=== PATIENT | female | born 1975 | race Caucasian/White ===

== ENCOUNTER 2021-09-21 00:21 | Day surgery (SDC) | payer OTHER, SELFPAY ==
[2021-09-06 14:39] VITALS: BMI 38.0
[2021-09-21 10:07] VITALS: BP 133/101; PULSE 128; RESP 18; TEMP 36.1; O2SAT 98; BMI 37.5
--- NOTE | 2021-09-21 10:11 | PM.HPGS ---
History of Present Illness History of Present Illness Consent: Risks, benefits, and alternatives have been discussed and questions answered. Patient agrees to proceed with procedure. 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 Review of Systems Constitutional: Constitutional: Denies headache(s) and Denies weakness Eyes: Eyes: Denies blurry vision ENT: Reports Normal hearing present, Denies headache(s) and Denies neck pain Cardiovascular: Cardiovascular: Denies chest pain and Denies dyspnea Respiratory: Respiratory: Denies dyspnea Gastrointestinal: Gastrointestinal: Reports no additional gastrointestinal complaints Genitourinary: Genitourinary: Denies dysuria Musculoskeletal: Musculoskeletal: Denies neck pain Integumentary/Breasts: Skin/Breast: Denies dry skin Neurologic: Reports Normal hearing present, Denies headache(s) and Denies weakness Psychiatric: Psychiatric: Denies anxiety Endocrine: Endocrine: Denies change in body appearance Hematologic/Lymphatic: Hematologic/Lymphatic: Denies easy bleeding Allergic/Immunologic: Allergic/Immunologic: Denies urticaria PMFSH Past Medical History Medical History (Updated 09/21/21 @ 10:12 by Floyd Rodríguez MD) Colon cancer screening GERD (gastroesophageal reflux disease) Family History Family History (Updated 02/23/16 @ 23:21 by DOCTOR UNKNOWN) Mother Patient's mother is in good health Family history of alcoholism Father Patient's father is in good health Sibling Patient's sister is in good health Grandparent Diabetes mellitus Social History Social History Smoking status: Never smoker Second hand tobacco smoke exposure: No Alcohol intake: current Drinks per week: 3 Substance use: never Substance use type: does not use Living arrangements: with family Spiritual care concerns: No Meds Home Medications and Allergies Home Medications Medication Instructions Recorded Confirmed Type famotidine 40 mg PO DAILY 09/06/21 09/06/21 History hydrochlorothiazide 25 mg PO DAILY 09/06/21 09/06/21 History levothyroxine [Synthroid] 112 mcg PO DAILY 09/06/21 09/06/21 History meloxicam 7.5 mg PO DAILY 09/06/21 09/06/21 History metoprolol succinate 100 mg PO DAILY 09/06/21 09/21/21 History norethindrone acetate 5 mg PO DAILY 09/06/21 09/06/21 History valsartan 320 mg PO DAILY 09/06/21 09/21/21 History venlafaxine 150 mg PO DAILY 09/06/21 09/06/21 History Allergies Allergy/AdvReac Type Severity Reaction Status Date / Time No Known Allergies Allergy Verified 09/21/21 10:05 Vital Signs Vital Signs - 24 hr 09/21/21 10:07 Temperature 97 F L Pulse Rate 128 H Respiratory Rate 18 Blood Pressure 133/101 H Pulse Oximetry 98 Exam Const: General: comfortable and no acute distress HENMT: General nose exam: Normal nares present Eyes: General: appearance normal, both eyes and all related structures Neck: Neck: no JVD Resp: Auscultation: clear to auscultation bilaterally Cardio: Rate: regular rate Rhythm: regular rhythm GI: Inspection: non-distended GI Palp: Yes Soft to palpation Skin: General skin exam: normal color Neuro: General: gait normal Speech: normal speech Extrem: General: normal to inspection Psych: Mental Status: mental status grossly normal Assessment and Plan Assessment and plan (1) GERD (gastroesophageal reflux disease): Code(s): K21.9 - Gastro-esophageal reflux disease without esophagitis Status: Acute Assessment and Plan: egd- will get bx of small bowel as well (2) Colon cancer screening: Code(s): Z12.11 - Encounter for screening for malignant neoplasm of colon Status: Acute Assessment and Plan: colonoscopy
--- NOTE | 2021-09-21 10:14 | WPDANESEPPF ---
Anes - Initial Pre Proc Eval Procedure: Operation Date: 09/21/21 10:45 Proposed Procedures p Esophagogastroduodenoscopy & Screening Colonoscopy - Floyd Rodríguez MD Date/Time: 09/21/21 10:14 Surgeon: Floyd Rodríguez MD Pre Op Diagnosis: GERD, Neoplasm screening Patient Data Age: 46 Gender: F Height: 1.73 m Weight: 112 kg Last Vital Signs Temp 36.1 C L 09/21/21 10:07 Pulse 128 H 09/21/21 10:07 Resp 18 09/21/21 10:07 BP 133/101 H 09/21/21 10:07 Pulse Ox 98 09/21/21 10:07 Allergies Allergy/AdvReac Type Severity Reaction Status Date / Time No Known Allergies Allergy Verified 09/21/21 10:05 Home Medications Medication Instructions Recorded Confirmed Type famotidine 40 mg PO DAILY 09/06/21 09/06/21 History hydrochlorothiazide 25 mg PO DAILY 09/06/21 09/06/21 History levothyroxine [Synthroid] 112 mcg PO DAILY 09/06/21 09/06/21 History meloxicam 7.5 mg PO DAILY 09/06/21 09/06/21 History metoprolol succinate 100 mg PO DAILY 09/06/21 09/21/21 History norethindrone acetate 5 mg PO DAILY 09/06/21 09/06/21 History valsartan 320 mg PO DAILY 09/06/21 09/21/21 History venlafaxine 150 mg PO DAILY 09/06/21 09/06/21 History Patient hx anesthesia problems: none Family hx anesthesia problems: none Results Review: All pre-operative results and documents have been reviewed as part of the pre-operative evaluation. FORMERLY [facility], [facility]1983 Past Medical History Medical History Anxiety GERD (gastroesophageal reflux disease) Hypertension Hypothyroid CHAVA (obstructive sleep apnea) Family History Family History Mother Patient's mother is in good health Family history of alcoholism Father Patient's father is in good health Sibling Patient's sister is in good health Grandparent Diabetes mellitus Social History Social History Smoking status: Never smoker Second hand tobacco smoke exposure: No Alcohol intake: current Drinks per week: 3 Substance use: never Substance use type: does not use Living arrangements: with family Spiritual care concerns: No Anes - Eval Final PreProcedure Day of Procedure 09/21/21 10:14 Patient weight: obese Heart: regular rate and rhythm Lungs: clear to auscultation Airway: Mallampati scale class II Neurological: alert and oriented Last oral intake: >/= 8 hours ASA classification: III Emergent: no Anesthetic plan: proceed Anesthesia type and monitoring: general GIVS and standard monitoring Results Review: All pre-operative results and documents have been reviewed as part of the pre-operative evaluation. Informed Consent: The patient's anesthetic plan and its attendant risks and benefits were discussed with the patient/family/POA. Questions were solicited and answers provided to the satisfaction of the patient/family/POA.
[2021-09-21] MEDS: LACTATED RINGERS 1,000 ML 150 ML IV CONT (10:15)
[2021-09-21 10:46] VITALS: BP 125/73; PULSE 103; RESP 20; O2SAT 96
[2021-09-21 10:56] VITALS: BP 138/96; PULSE 93; RESP 20; O2SAT 97
[2021-09-21 11:06] VITALS: BP 142/90; PULSE 95; RESP 19; O2SAT 98
== END 2021-09-21 11:18 | disposition home or self-care (01) ==
PROVIDERS: PCP Physician Assistant; Visit Provider Internal Medicine Gastroenterology
PROC: 0DJ08ZZ Inspection of Upper Intestinal Tract, Via Natural or Artificial Opening Endoscopic (ICD-10-PCS; CPT 43235; principal; 2021-09-21 10:45)
DX: Z12.11 Encounter for screening for malignant neoplasm of colon (principal); D12.2 Benign neoplasm of ascending colon; K29.70 Gastritis, unspecified, without bleeding; K21.9 Gastro-esophageal reflux disease without esophagitis; K90.0 Celiac disease; I10 Essential (primary) hypertension; E03.9 Hypothyroidism, unspecified; G47.33 Obstructive sleep apnea (adult) (pediatric); F41.9 Anxiety disorder, unspecified; E66.9 Obesity, unspecified; Z68.37 Body mass index [BMI] 37.0-37.9, adult
CPT/HCPCS: 45380; 43239; 88305; J2001; J2704; J7120

== ENCOUNTER 2021-11-12 05:31 | Emergency (ER) | payer OTHER, SELFPAY ==
[2021-11-12] VITALS (14 sets, daily range): BP systolic 153–191; BP diastolic 83–117; PULSE 73–92; RESP 15–22; TEMP 36.4; O2SAT 96–100
--- NOTE | ~2021-11-12 | CT_ITS ---
EXAMINATION: CT brain wo con EXAM DATE: 11/12/2021 06:08 INDICATION: Headache Since Yesterday. TECHNIQUE: Spiral CT of the head was performed without contrast. Axial, coronal and sagittal images were reviewed. The dose-length product (DLP) for this examination was 605.33 mGy-cm. The exposure w as tailored according to patient size, and iterative reconstruction (ASIR) was used as additional dos e reduction technique. There is no prior study for comparison. FINDINGS: There is no acute intraparenchymal hemorrhage. No evidence of intraparenchymal brain mass lesion. No evidence of acute infarction. There is no mass effect or midline shift. The ventricles are normal in size. There are no extra-axial collections. There are no acute calvarial fractures. T he orbits are unremarkable. Soft tissue is unremarkable. The visualized sinuses and mastoid air noe ls are well aerated. IMPRESSION: 1. Unremarkable head CT examination. Reviewed, dictated and finalized at location A.
--- NOTE | 2021-11-12 05:58 | PC.NURSE ---
Patient taken to CT a this time via stretcher.
--- NOTE | 2021-11-12 06:00 | ED.GENADULT ---
HPI - General Adult General Chief complaint: Headache Stated complaint: severe headache Time Seen by Provider: 11/12/21 05:39 Source: patient and RN notes reviewed Mode of arrival: ambulatory Limitations: no limitations History of Present Illness HPI narrative: 46-year-old female history of migraines presenting to the emergency department for evaluation of a migraine that has been ongoing since the morning of the . Patient states when she woke up on the she had a frontal headache. Patient states that the headache does worsen with pressure to her head. Patient denies any associated light sensitivity. Patient does report associated nasal congestion and sinus pressure. Patient did have follow-up with a prompt care yesterday and was treated with a migraine cocktail including IM Toradol and IM Zofran. Patient reports this did help her and until he woke up this morning and had a recurrence of the headache. Denies any falls or injuries. Patient denies any fevers. Patient denies any associated neck pain. Patient denies any associated numbness or weakness. Related Data Home Medications Medication Instructions Recorded Confirmed famotidine 40 mg PO DAILY 09/06/21 09/06/21 hydrochlorothiazide 25 mg PO DAILY 09/06/21 09/06/21 levothyroxine [Synthroid] 112 mcg PO DAILY 09/06/21 09/06/21 metoprolol succinate 100 mg PO DAILY 09/06/21 09/21/21 norethindrone acetate 5 mg PO DAILY 09/06/21 09/06/21 valsartan 320 mg PO DAILY 09/06/21 09/21/21 venlafaxine 150 mg PO DAILY 09/06/21 09/06/21 ondansetron 11/12/21 prednisone 11/12/21 Allergies Allergy/AdvReac Type Severity Reaction Status Date / Time No Known Allergies Allergy Verified 11/12/21 05:36 Review of Systems Review of Systems: CONSTITUTIONAL: Denies fever, chills, or sweats. EYES: Denies visual changes, redness, or discharge. ENT: see hpi. CARDIOVASCULAR: Denies chest pain, palpitations, or edema. RESPIRATORY: Denies cough or dyspnea. GASTROINTESTINAL: Denies abdominal pain, nausea, vomiting, or diarrhea. GENITOURINARY: Denies dysuria or hematuria. SKIN: Denies rash or itching. MUSCULOSKELETAL: Denies back pain, joint pain, or myalgia. NEUROLOGIC: see hpi PMFSH Past Medical History Medical History Anxiety GERD (gastroesophageal reflux disease) Hypertension Hypothyroid CHAVA (obstructive sleep apnea) Family History Family History Mother Patient's mother is in good health Family history of alcoholism Father Patient's father is in good health Sibling Patient's sister is in good health Grandparent Diabetes mellitus Social History Social History Smoking status: Never smoker Second hand tobacco smoke exposure: No Alcohol intake: current Drinks per week: 3 Substance use: never Substance use type: does not use Spiritual care concerns: No Exam Narrative: APPEARANCE: Well appearing, no pain, no distress, well-nourished. HEAD: normocephalic, atraumatic. Reports headache is improved with palpation and pressure on the frontal and maxillary sinuses EYES: PERRLA/EOMI, conjunctivae clear. NOSE: Normal no drainage NECK: Supple. No adenopathy, no masses. RESPIRATORY: Airway patent, respirations nonlabored. Clear to auscultation bilaterally, no rales, rhonchi, wheezing. CARDIOVASCULAR: Regular rate and rhythm without murmurs rubs or gallops. ABDOMINAL: Soft, nontender, nondistended, normal bowel sounds MUSCULOSKELETAL: Moves all extremities. Strength/ROM intact, No edema, No calf tenderness. NEURO: Alert. Cranial nerves II through XII intact. Good gait. Good coordination. Grossly intact SKIN: Warm, dry. Normal Color Course Reevaluation(s) Reevaluation #1: On reexamination patient states her headache is almost completely resolved. Patient blood pressure was mildly elevated she
[2021-11-12] MEDS: SODIUM CHLORIDE 0.9% IV 1,000 ML 999 ML IV CONT (06:06)
[2021-11-12] MEDS: PROCHLORPERAZINE EDISYLATE 10 MG/2 ML VIAL IV PUSH (06:06)
[2021-11-12] MEDS: hydrALAZINE HCL 20 MG/ML VIAL 10 MG IV PUSH (06:07)
[2021-11-12] MEDS: diphenhydrAMINE HCl INJ 50 MG/ML VIAL 25 MG IV PUSH (06:07)
[2021-11-12] MEDS: METOPROLOL SUCCINATE EXT REL 100 MG TABCR PO (06:40)
[2021-11-12] MEDS: KETOROLAC 15 MG/ML VIAL (*BKC) IV PUSH (06:46)
== END 2021-11-12 07:53 | disposition home or self-care (01) ==
PROVIDERS: Emergency Provider Emergency Medicine; PCP Physician Assistant
DX: R51.9 Headache, unspecified (principal); I10 Essential (primary) hypertension; E03.9 Hypothyroidism, unspecified; G47.33 Obstructive sleep apnea (adult) (pediatric); K21.9 Gastro-esophageal reflux disease without esophagitis; F41.9 Anxiety disorder, unspecified
CPT/HCPCS: 70450; 96361; 96374; 96375; 99284; A9270; J0360; J0780; J1200; J1885; J7030

== ENCOUNTER → 2022-08-20 09:16 | Outpatient (CLI) | payer OTHER, SELFPAY ==
--- NOTE | ~2022-08-20 | US_ITS ---
EXAMINATION: US retroperitoneal duplex ltd DATE: 08/20/2022 09:49 INDICATION: Essential primary hypertension TECHNIQUE: Multiple grayscale, color Doppler, and pulsed Doppler images of the kidneys and renal isabel anne were obtained. COMPARISON: None. FINDINGS: The aorta peak systolic velocity is 105 cm/s. The right renal artery peak systolic velocity is 96 cm/ s in the proximal segment, 95 cm/s in the mid segment, and 128 cm/s in the distal segment. The left r enal artery peak systolic velocity is 81 cm/s in the proximal segment, 95 cm/s in the mid segment, an d 100 cm/s in the distal segment. IMPRESSION: 1. No Doppler evidence of renal artery stenosis. Reviewed, dictated and finalized at location L. AGE AGENT SUPERVISOR
== END ==
PROVIDERS: PCP Physician Assistant; Visit Provider Physician Assistant
DX: I10 Essential (primary) hypertension (principal)
CPT/HCPCS: 93976

== ENCOUNTER 2023-08-27 23:04 | Emergency (ER) | payer OTHER, SELFPAY ==
--- NOTE | ~2023-08-27 | CT_ITS ---
CT of the Abdomen and Pelvis: Indication: Postop infection, status post liposuction Technique: 2.5 mm axial scans were obtained through the abdomen and pelvis following intravenous adm inistration of 100 cc of Omnipaque 350. Dose reduction technique was used on this scan by utilizing a utomated exposure control and iterative reconstruction technique. The dose-length product (DLP) was 1 403.25 mGy-cm. Findings: Scans through the lung bases are unremarkable. The liver, spleen, pancreas, gallbladder, adrenals and kidneys are within normal limits. No evidence of aortic aneurysm. No lymphadenopathy. No bowel obstruction or bowel wall thickening. There is no evidence to suggest acute appendicitis. Th ere is extensive subcutaneous soft tissue edema changes with areas of fluid in the subcutaneous soft tissues, especially the left midabdomen. Images through the pelvis were performed. Urinary bladder unremarkable. No pelvic mass evident. No as cites. Impression: Diffuse subcutaneous soft tissue edema with areas of fluid, especially the left midabdomen. These fin dings could reflect sequelae of recent surgery/liposuction. Developing seromas or even abscesses are not excluded. No other significant findings. Reviewed, dictated and finalized at location . PHONE COLLECTOR Impression: Diffuse subcutaneous soft tissue edema with areas of fluid, especially the left midabdomen. These findings could reflect sequelae of recent surgery/liposuctio n. Developing seromas or even abscesses are not excluded. No other significant findings.
[2023-08-27 23:17] VITALS: BP 164/80; PULSE 87; RESP 16; TEMP 36.8; O2SAT 100
[2023-08-28] VITALS (11 sets, daily range): BP systolic 149–193; BP diastolic 78–98; PULSE 78–89; RESP 16–23; O2SAT 96–100
[2023-08-28 00:53] LABS: Basophils Percent Auto 0.5 % (0.2-1.2); Eosinophils Absolute Auto 0.3 K/mm3 (0-0.3); Hematocrit 34.2 % (37.0-47.0); Hemoglobin 11.1 g/dL (12.0-15.0); Immature Granulocyte Absolute 0.02 K/mm3 (0.00-0.031); Immature Granulocyte Percent A 0.2 % (0-0.5); Lymphocytes Absolute Auto 1.61 K/mm3 (0.9-3.2); Lymphocytes Percent Auto 19.5 % (18.3-44.2); Mean Corpuscular HGB Conc 32.5 g/dl (32-36); Mean Corpuscular Hemoglobin 32.5 pg (26-34); Mean Platelet Volume 10.9 fl (7.4-10.4); Monocytes Absolute Auto 0.8 K/mm3 (0.1-0.6); Monocytes Percent Auto 9.1 % (2.6-8.5); Neutrophils Absolute Auto 5.6 K/mm3 (1.3-6.7); Neutrophils Percent Auto 67.7 % (45.5-73.1); Platelet Count Result 259 k/mm3 (150-375); Red Blood Count 3.42 M/mm3 (4.2-5.4); Red Cell Distribution Width 14.8 % (11.5-14.5); White Blood Count 8.2 K/mm3 (4.5-10.0)
[2023-08-28 01:10] LABS: Lactic Acid Reflex 1.3 mmol/L (0.7-2.0)
[2023-08-28 01:14] LABS: Alanine Aminotransferase 23 U/L (6-35); Albumin Level 3.8 g/dL (3.5-5.1); Alkaline Phosphatase 120 U/L (38-126); Anion Gap 8 mmol/L (8-16); Aspartate Amino Transferase 22 U/L (14-36); Bilirubin,Total 0.4 mg/dL (0.2-1.3); Blood Urea Nitrogen 16 mg/dL (7-17); Calcium 9.3 mg/dL (8.4-10.2); Carbon Dioxide 27 mmol/L (22-30); Chloride 104 mmol/L (98-107); Estimated CRCL calculation 93 ml/min; Estimated Glomerular Filt Rate > 60; Glucose 155 mg/dL (65-110); Potassium 3.4 mmol/L (3.4-5.0); Sodium 139 mmol/L (137-145)
[2023-08-28 01:38] LABS: Appearance Urine Clear (Clear); Bacteria Urine None Seen /hpf; Bilirubin Urine Negative (Negative); Blood Urine Negative (Negative); Color Urine Yellow (Yellow); Glucose Urine UA 1+ mg/dL (Negative); Ketones Urine Negative (Negative); Leukocyte Esterase Ur 1+ LEU/UL (Negative); Need Manual Microscopic Reviewed; Nitrate Urine Negative (Negative); Non Pathogenic Casts 0-2; Protein Urine Negative (Negative); RBC Urine 0-2 /hpf (0-2); Specific Grav Ur 1.007 (1.001-1.035); Squamous Epithelial Cell Urine None seen /hpf (Few); Urobilinogen Urine 0.2 mg/dL (<2.0); WBC Urine 0-5 /hpf; pH Urine 5.5 (5.0-9.0)
[2023-08-28 01:39] LABS: Add Urine Microscopic? YES
[2023-08-28] MEDS: ceFAZolin 1 GM/NS 50 ML 1 GM/50 ML BAG IVPB (01:55)
--- NOTE | 2023-08-28 02:33 | PC.NURSE ---
PT ABLE TO GET AHOLD OF SURGEON, DR. FELTON EMERGENCY NUMBER, . EDP LEODAN MADE AWARE AND GIVEN PHONE NUMBER.
--- NOTE | 2023-08-28 02:40 | PC.NURSE ---
THIS RN CONTACTED PHARMACY REGARDING VANC ORDER. PHARMACY DOSING NOW AND TO BE SENDING RX UP BY [facility].
--- NOTE | 2023-08-28 02:42 | ED.WOUNDLAC ---
HPI - Wound/Laceration General Chief Complaint: Wound/Laceration Stated Complaint: post-lipo infection Time Seen by Provider: 08/28/23 00:16 Source: patient Mode of arrival: ambulatory Limitations: no limitations History of Present Illness HPI narrative: This is a 48 year old female that presents to the ER for wound infection. Reports she had a tummy tuck on the 11 of August. Reports over the last couple of days she has had worsening redness of her incision site. Reports some abnormal drainage. She was started on Augmentin by her surgeon yesterday without any improvement. Denies fevers. Related Data Home Medications Medication Instructions Recorded Confirmed famotidine 40 mg tablet 40 mg PO DAILY 09/06/21 09/06/21 hydrochlorothiazide 25 mg tablet 25 mg PO DAILY 09/06/21 09/06/21 levothyroxine 112 mcg tablet 112 mcg PO DAILY 09/06/21 09/06/21 (Synthroid) metoprolol succinate 50 mg 100 mg PO DAILY 09/06/21 09/21/21 tablet,extended release 24 hr norethindrone acetate 5 mg tablet 5 mg PO DAILY 09/06/21 09/06/21 valsartan 320 mg tablet 320 mg PO DAILY 09/06/21 09/21/21 venlafaxine 150 mg 150 mg PO DAILY 09/06/21 09/06/21 capsule,extended release 24 hr ondansetron 8 mg disintegrating 11/12/21 tablet prednisone 20 mg tablet 11/12/21 Allergies Allergy/AdvReac Type Severity Reaction Status Date / Time No Known Allergies Allergy Verified 08/28/23 01:05 Review of Systems Review of Systems: CONSTITUTIONAL: Denies fever GASTROINTESTINAL: Denies abdominal pain, nausea, vomiting All systems reviewed & are unremarkable except as noted in HPI and below PMFSH Past Medical History Medical History Anxiety GERD (gastroesophageal reflux disease) Hypertension Hypothyroid CHAVA (obstructive sleep apnea) Family History Family History Mother Patient's mother is in good health Family history of alcoholism Father Patient's father is in good health Sibling Patient's sister is in good health Grandparent Diabetes mellitus Social History Social History Smoking status: Never smoker Second hand tobacco smoke exposure: No Alcohol intake: current Drinks per week: 3 Substance use: never Substance use type: does not use Living arrangements: with family Spiritual care concerns: No Exam Narrative: GENERAL: Well-appearing, well-nourished, and in no acute distress. HEAD: Normocephalic, atraumatic. EYES: EOMI. CHEST: Clear to auscultation. No respiratory distress. No wheezes rales or rhonchi HEART: Regular rate and rhythm. No murmur heard. Normal peripheral pulses. ABDOMEN: Soft, nontender, nondistended, normal active bowel sounds. Large horizontal incision with surrounding edema and erythema, some wound dehiscence of the left side of the incision. Abnormal drainage from the umbilicus EXTREMITIES: Normal range of motion. No edema. SKIN: Warm, dry, no rash. NEURO: No focal deficits. Alert and oriented x3. PSYCH: Normal mood and affect Course Course Emergency Course: Patient updated on her workup and agrees with plan of care Consultations Consultation #1: Spoke with Dr. Phipps about patient and workup. Would like patient to follow up in her office today Date: 08/28/23 Vital Signs Vital signs: Vital Signs Temperature 98.2 F 08/27/23 23:17 Pulse Rate 87 08/27/23 23:17 Respiratory Rate 16 08/27/23 23:17 Blood Pressure 164/80 H 08/27/23 23:17 Pulse Oximetry 100 08/27/23 23:17 Oxygen Delivery Room Air 08/27/23 23:17 Temperature 98.2 F 08/27/23 23:17 Pulse Rate 80 08/28/23 00:12 Respiratory Rate 17 08/28/23 00:12 Blood Pressure 157/84 H 08/28/23 01:16 Pulse Oximetry 97 08/28/23 03:00 Oxygen Delivery Room Air 08/27/23 23:17 MDM - Wound/Laceration MDM Narrative Medic
[2023-08-28] MEDS: VANCOMYCIN 1,250 MG/NS 250 ML 1,250 MG/250 ML BAG 166.67 MG IVPB (03:04)
--- NOTE | 2023-08-28 04:43 | PC.NURSE ---
Pt c/o itching on lower neck and shoulders that started last 5 mins of 1/[address] Mar made aware and assessing pt at this time.
[2023-08-28] MEDS: diphenhydrAMINE HCl INJ 50 MG/ML VIAL IV PUSH (04:58)
--- NOTE | 2023-08-28 05:00 | PC.NURSE ---
EDP Dr. Mar ordered 2/2 bag of vanc to be held and to admin ordered benadryl. 2/2 bag of vanc can be resumed at 1/2 rate after rash is gone.
[2023-08-28] MEDS: VANCOMYCIN 1,250 MG/NS 250 ML 1,250 MG/250 ML BAG 84 MG IVPB (05:33)
--- NOTE | 2023-08-28 05:33 | PC.NURSE ---
Rash no longer visible on pt and pt has no c/o itching. Vanc bag 2/2 started at 84ml/hr. Pt to call out with any changes in condition. This RN will continue to monitor pt through duration of infusion.
== END 2023-08-28 07:53 | disposition home or self-care (01) ==
PROVIDERS: Emergency Provider Physician Assistant; PCP Physician Assistant
DX: T81.41XA Infection following a procedure, superficial incisional surgical site, initial encounter (principal); I10 Essential (primary) hypertension; E03.9 Hypothyroidism, unspecified; K21.9 Gastro-esophageal reflux disease without esophagitis; G47.33 Obstructive sleep apnea (adult) (pediatric)
CPT/HCPCS: 36415; 74177; 80053; 81001; 81025; 83605; 85025; 86140; 87040; 87070; 87077; 87147; 87181; 87186; 87205; 96365; 96366; 96367; 96375; 99284; J0690; J1200; J3370; Q9967

== ENCOUNTER 2023-12-24 07:35 | Outpatient (CLI) | payer OTHER, SELFPAY ==
--- NOTE | ~2023-12-24 | US_ITS ---
EXAMINATION: US retroperitoneal duplex ltd DATE: 12/24/2023 08:17 INDICATION: Hypertension. TECHNIQUE: Multiple grayscale, color Doppler, and pulsed Doppler images of the kidneys and renal isabel anne were obtained. COMPARISON: CT abdomen and pelvis 08/28/2023 FINDINGS: The aorta peak systolic velocity is 64 cm/s. The right renal artery peak systolic velocity is 110 cm/ s in the proximal segment, 95 cm/s in the mid segment, and 183 cm/s in the distal segment. The left r enal artery peak systolic velocity is 80 cm/s in the proximal segment, 168 cm/s in the mid segment, a nd 191 cm/s in the distal segment. IMPRESSION: 1. No Doppler evidence of renal artery stenosis. The prior CT similarly shows no significant renal a rtery stenosis. Reviewed, dictated and finalized at location A. IMPRESSION: 1. No Doppler evidence of renal artery stenosis. The prior CT similarly shows no significant renal artery stenosis.
== END 2023-12-24 07:36 | disposition home or self-care (01) ==
PROVIDERS: PCP Physician Assistant; Visit Provider Physician Assistant
DX: I10 Essential (primary) hypertension (principal)
CPT/HCPCS: 93976

== ENCOUNTER 2024-02-10 14:24 | Emergency (ER) | payer OTHER, SELFPAY ==
[2024-02-10] VITALS (17 sets, daily range): BP systolic 165–188; BP diastolic 83–116; PULSE 83–85; RESP 16; TEMP 36.6; O2SAT 98–100
--- NOTE | 2024-02-10 14:48 | ECG_ITS ---
Test Date: 2024-02-10 15:07:35 Measurements Intervals [place] Rate: 77 P: 22 SD: 185 QRS: 10 QRSD: 91 T: 11 QT: 365 QTc: 414 Interpretive Statements SINUS RHYTHM VOLTAGE CRITERIA FOR LVH CONSIDER INFERIOR INFARCT, AGE INDETERMINATE ABNORMAL ECG No previous ECG available for comparison Electronically Signed On 02-10-2024 15:28:14 CDT by Jefry Gambino D.O.
[2024-02-10] MEDS: hydrALAZINE HCL 20 MG/ML VIAL 10 MG IV PUSH ×2 (15:27→16:23)
[2024-02-10 15:36] LABS: Basophils Absolute Auto 0.1 K/mm3 (0.0-0.1); Basophils Percent Auto 0.8 % (0.2-1.2); Eosinophils Absolute Auto 0.1 K/mm3 (0-0.3); Eosinophils Percent Auto 1.8 % (0-4.4); Hemoglobin 13.6 g/dL (12.0-15.0); Immature Granulocyte Absolute 0.02 K/mm3 (0.00-0.031); Immature Granulocyte Percent A 0.3 % (0-0.5); Lymphocytes Absolute Auto 1.91 K/mm3 (0.9-3.2); Lymphocytes Percent Auto 28.9 % (18.3-44.2); Mean Corpuscular Hemoglobin 31.6 pg (26-34); Mean Corpuscular Volume 92.8 fl (80-100); Mean Platelet Volume 11.1 fl (7.4-10.4); Monocytes Absolute Auto 0.8 K/mm3 (0.1-0.6); Monocytes Percent Auto 12.1 % (2.6-8.5); Neutrophils Absolute Auto 3.7 K/mm3 (1.3-6.7); Neutrophils Percent Auto 56.1 % (45.5-73.1); Platelet Count Result 180 k/mm3 (150-375); Red Blood Count 4.31 M/mm3 (4.2-5.4); Red Cell Distribution Width 14.2 % (11.5-14.5); White Blood Count 6.6 K/mm3 (4.5-10.0)
[2024-02-10 15:51] LABS: Alanine Aminotransferase 29 U/L (6-35); Albumin Level 4.4 g/dL (3.5-5.1); Alkaline Phosphatase 115 U/L (38-126); Anion Gap 11 mmol/L (4-12); Aspartate Amino Transferase 27 U/L (14-36); Bilirubin,Total 0.6 mg/dL (0.2-1.3); Blood Urea Nitrogen 21 mg/dL (7-17); Calcium 9.4 mg/dL (8.4-10.2); Carbon Dioxide 29 mmol/L (22-30); Chloride 98 mmol/L (98-107); Estimated CRCL calculation 91 ml/min; Estimated Glomerular Filt Rate > 60; Glucose 123 mg/dL (65-110); Potassium 3.7 mmol/L (3.4-5.0); Sodium 138 mmol/L (137-145)
--- NOTE | 2024-02-10 16:45 | ED.GENADULT ---
HPI - General Adult General Chief complaint: Recheck/Abnormal Lab/Rx Stated complaint: HTN Time Seen by Provider: 02/10/24 14:37 Source: patient Limitations: no limitations History of Present Illness HPI narrative: 48-year-old with a history of hypertension, hypothyroidism, anxiety here with the complaints of elevated blood pressure since this morning. She denies any blurred vision, no chest pain or shortness of breath. Onset (ago): day(s) (1) Radiation: non-radiation Severity: moderate Relieving factors: none Exacerbating factors: none Associated symptoms: denies other symptoms Treatments prior to arrival: none Related Data Home Medications Medication Instructions Recorded Confirmed famotidine 40 mg tablet 40 mg PO DAILY 09/06/21 09/06/21 hydrochlorothiazide 25 mg tablet 25 mg PO DAILY 09/06/21 09/06/21 levothyroxine 112 mcg tablet 112 mcg PO DAILY 09/06/21 09/06/21 (Synthroid) metoprolol succinate 50 mg 100 mg PO DAILY 09/06/21 09/21/21 tablet,extended release 24 hr norethindrone acetate 5 mg tablet 5 mg PO DAILY 09/06/21 09/06/21 valsartan 320 mg tablet 320 mg PO DAILY 09/06/21 09/21/21 venlafaxine 150 mg 150 mg PO DAILY 09/06/21 09/06/21 capsule,extended release 24 hr ondansetron 8 mg disintegrating 11/12/21 tablet prednisone 20 mg tablet 11/12/21 Allergies Allergy/AdvReac Type Severity Reaction Status Date / Time No Known Allergies Allergy Verified 02/10/24 14:25 Review of Systems Review of Systems: All systems reviewed & are unremarkable except as noted in HPI and below Constitutional: Constitutional: Reports no additional constitutional complaints Eyes: Eyes: Reports no additional eye complaints ENT: Reports system reviewed and no additional complaints, except as documented Cardiovascular: Cardiovascular: Reports no additional cardiovascular complaints Respiratory: Respiratory: Reports no additional respiratory complaints Gastrointestinal: Gastrointestinal: Reports no additional gastrointestinal complaints Musculoskeletal: Musculoskeletal: Reports no additional musculoskeletal complaints Integumentary/Breasts: Skin/Breast: Reports system reviewed and no additional complaints, except as docu Neurologic: Reports system reviewed and no additional complaints, except as documented [facility] Past Medical History Medical History Anxiety GERD (gastroesophageal reflux disease) Hypertension Hypothyroid CHAVA (obstructive sleep apnea) Family History Family History Mother Patient's mother is in good health Family history of alcoholism Father Patient's father is in good health Sibling Patient's sister is in good health Grandparent Diabetes mellitus Social History Social History Smoking status: Never smoker Second hand tobacco smoke exposure: No Alcohol intake: current Drinks per week: 3 Substance use: never Substance use type: does not use Living arrangements: with family Spiritual care concerns: No Exam Narrative: GENERAL: Well-appearing, well-nourished, and in no acute distress. HEAD: Normocephalic, atraumatic. EYES: PERRLA and EOMI. ENT: Nares clear, no rhinorrhea or epistaxis. Mucous membranes moist. NECK: Supple. CHEST: Clear to auscultation. No respiratory distress. HEART: Regular rate and rhythm. No murmur heard. Normal peripheral pulses. ABDOMEN: Soft, nontender, nondistended, normal active bowel sounds. EXTREMITIES: Normal range of motion. No edema. SKIN: Warm, dry, no rash. NEURO: No focal deficits. Alert and oriented x3. PSYCH: Normal mood and affect. Course Course Emergency Course: Patient feeling better informed about the lab work. Recommended her to follow with her primary doctor as well as a secretary bookkeeper. Her blood pressure has gradually come down. It is 175/95. Vital Si
== END 2024-02-10 17:04 | disposition home or self-care (01) ==
PROVIDERS: Emergency Provider Family Medicine; PCP Physician Assistant
DX: I10 Essential (primary) hypertension (principal); F41.9 Anxiety disorder, unspecified; K21.9 Gastro-esophageal reflux disease without esophagitis; E03.9 Hypothyroidism, unspecified; G47.30 Sleep apnea, unspecified
CPT/HCPCS: 36415; 80053; 85025; 93005; 96374; 96376; 99284; J0360

== ENCOUNTER 2024-12-20 14:49 | Emergency (ER) | payer OTHER, SELFPAY ==
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
--- NOTE | 2024-12-20 14:52 | ECG_ITS ---
Test Date: 2024-12-20 14:54:35 Measurements Intervals [place] Rate: 79 P: 43 NV: 188 QRS: 23 QRSD: 88 T: 49 QT: 368 QTc: 423 Interpretive Statements SINUS RHYTHM Compared to ECG 02/10/2024 15:07:35 T-wave abnormality now present Left ventricular hypertrophy no longer present Myocardial infarct finding no longer present Electronically Signed On 12-20-2024 15:07:34 CDT by Ronnie Mendez M.D.
[2024-12-20 14:53] VITALS: BP 155/94; PULSE 81; RESP 18; TEMP 37.1; O2SAT 99
[2024-12-20 16:46] VITALS: BP 144/78; PULSE 89; PULSE 91; RESP 18; RESP 20; O2SAT 100
[2024-12-20 16:55] LABS: Basophils Absolute Auto 0.1 K/mm3 (0.0-0.1); Basophils Percent Auto 0.6 % (0.2-1.2); Eosinophils Absolute Auto 0.2 K/mm3 (0-0.3); Eosinophils Percent Auto 1.5 % (0-4.4); Hematocrit 38.9 % (37.0-47.0); Hemoglobin 12.7 g/dL (12.0-15.0); Immature Granulocyte Absolute 0.09 K/mm3 (0.00-0.031); Immature Granulocyte Percent A 0.7 % (0-0.5); Lymphocytes Absolute Auto 1.64 K/mm3 (0.9-3.2); Mean Corpuscular HGB Conc 32.6 g/dl (32-36); Mean Corpuscular Hemoglobin 31.8 pg (26-34); Mean Corpuscular Volume 97.3 fl (80-100); Mean Platelet Volume 10.3 fl (7.4-10.4); Monocytes Absolute Auto 0.8 K/mm3 (0.1-0.6); Monocytes Percent Auto 6.6 % (2.6-8.5); Neutrophils Absolute Auto 9.8 K/mm3 (1.3-6.7); Neutrophils Percent Auto 77.6 % (45.5-73.1); Platelet Count Result 278 k/mm3 (150-375); Red Cell Distribution Width 14.6 % (11.5-14.5); White Blood Count 12.6 K/mm3 (4.5-10.0)
[2024-12-20 17:01] VITALS: BP 126/85; PULSE 87; RESP 23; O2SAT 99
[2024-12-20 17:03] LABS: Alanine Aminotransferase 27 U/L (6-35); Albumin Level 4.1 g/dL (3.5-5.1); Alkaline Phosphatase 100 U/L (38-126); Anion Gap 15 mmol/L (4-12); Aspartate Amino Transferase 36 U/L (14-36); Bilirubin,Total 0.3 mg/dL (0.2-1.3); Blood Urea Nitrogen 14 mg/dL (7-17); Calcium 9.2 mg/dL (8.4-10.2); Carbon Dioxide 21 mmol/L (22-30); Chloride 105 mmol/L (98-107); Estimated CRCL calculation 91 ml/min; Estimated Glomerular Filt Rate > 60; Glucose 135 mg/dL (65-110); Potassium 3.5 mmol/L (3.4-5.0); Sodium 141 mmol/L (137-145)
[2024-12-20 17:18] LABS: Prothrombin Time 13.6 Seconds (11.1-14.7)
[2024-12-20 17:19] LABS: Partial Thromboplastin Time 22.7 Seconds (22.3-36.8)
--- OUTSIDE RECORDS SUMMARY | 2024-12-20 18:28 | XMS_ITS | Data Portability ---
Author Organization [place] [facility] [place], Main Office Address [address] [place] [address] Assessment No assessment recorded. Plan of Treatment Reminders Order Date Submit Date Provider Last Modified By Organization Details Last Modified Time Details Appointments None recorded. Lab None recorded. Referral None recorded. Procedures None recorded. Surgeries None recorded. Imaging XR, ankle + foot 2022 023 VIJAY Not available 3 08:46:49 MAMMO, diagnostic, digital, bilateral 2022 023 [email or web address] 4 Not available 3 10:37:06 US, breast, unilateral 2022 023 [email or web address] 4 Not available 3 10:36:55 Medication Orders None recorded. Patient TargetsNo targets recorded. Patient InstructionsNo instructions recorded. Reason for Referral None Reported. Results Created Date Observation Date Name Description Value Unit Range Abnormal Flag Note LastModifiedBy Organization Detail LastModifiedTime 07/23/20 22 07/29/2022 donavon justin am No observ ation record ed. [id number] [facility] [address], [place], [address], 09/25/2022 18:03:05 07/23/20 22 07/17/2022 elect samuel tellogr am No observ ation record ed. [id number] [facility] [address], [place], [address], 09/25/2022 18:03:05 09/18/19 23 08/20/2022 US, duple x, renal arter y No observ ation record ed. [id number] [facility] [address], [place], [address], 09/25/2022 18:03:05 10/10/19 23 10/01/2022 stres s echoc ardio gram No observ ation record ed. [email or web address] [facility] [address], [place], [address], 10/09/2022 17:26:53 02/12/20 23 12/21/2022 XR, ankle No observ ation record ed. [email or web address] [facility] [address] [place], [address], 02/12/2023 10:53:16 02/14/20 23 02/12/2023 XR, ankle + foot No observ ation record ed. [email or web address] [facility] [address] [place], [address], 02/21/2023 14:30:41 Result Notes None recorded. Problems Name Problem SNOMED Code Status Onset Date Resolution Date Notes Provider Name and Address Organization Details Recorded Time Benign hypertensi on 87672254 Active Not Available [facility] 3 18:01:56 Benign essential hypertensi on 1670390 Active 2021 Not Available [facility] 3 18:01:56 Blood glucose outside reference range 009609755 Active Not Available [facility] 3 18:01:56 Thyroid nodule 353078963 Active Not Available [facility] 3 18:01:56 Hypothyroi dism due to Ronnie' s thyroiditi s 682230196 Active Not Available [facility] 3 18:01:56 Wasp sting 353640503 Active Not Available [facility] 3 18:01:56 Eruption 865540227 Active Not Available [facility] 3 18:01:56 Vitamin D deficiency 99312404 Active Not Available [facility] 3 18:01:56 Celiac disease 781672871 Active Not Available [facility] 3 18:01:56 Dizziness 670774818 Active 2022 Not Available [facility] 3 18:01:56 Dysphagia 48620380 Active Not Available [facility] 3 18:01:56 Hypothyroi dism 17201076 Active Not Available [facility] 3 18:01:56 Intentiona l weight loss 566008955 Active 2021 Not Available [facility] 3 18:01:56 Well controlled type 2 diabetes mellitus 398612649 Active 2021 Not Available [facility] 3 18:01:57 Resistant hypertensi ve disorder 3011745071544 09 Active 2021 Not Available [facility] 3 18:01:57 Hyperlipid emia 78217351 Active 2021 Not Available [facility] 3 18:01:57 Otitis media 38602471 Active Not Available [facility] 3 18:01:57 Eustachian tube disorder 87772401 Active Not Available [facility] 3 18:01:57 Snoring 60523314 Active Not Available [facility] 3 18:01:57 Fatigue 81021258 Active Not Available [facility] 3 18:01:57 Weight gain 1955241 Active Not Available [facility] 3 18:01:57 Mass of left breast 7016050895442 9103 Active 2022 ALON Nicholas [address], [place], [address] , [facility] 3 16:37:11 Sprain of right ankle 2108155998067 9105 Active 2022 ALON Nicholas [address], [place], [address] , [employer] [facility] 3 14:29:30 Notes:Some problems listed i n Document: #[id number] could not be added to this patient's chart. Please review this document and add these problems to the patient's chart manually as needed. Problem Notes None recorded. Procedures Surgical History Date Name Laterality Status Provider Name and Address Organization Details Recorded Time Ablation completed Not Available [facility] 18:01:18 Imaging Results None recorded. Procedure Notes None recorded. Medical Equipment None Reported. Allergies No known drug allergies Medications Name Sig Start Date Stop Date Status Note LastModified by Organization Details LastModified Time sleepio mis active Not Available Not Available Not Available Augmentin 875 mg-125 mg tablet Take 1 tablet every 12 hours by oral route. 09/20 completed Not Available Not Available Not Available venlafaxin e ER 37.5 mg capsule,ex tended release 24 hr TAKE ONE CAPSULE BY MOUTH EVERY DAY 04/21 completed Not Available Not Available Not Available clonidine HCl 0.1 mg tablet Take 1 tablet twice a day by oral route. active change to AM dose only Not Available Not Available Not Available venlafaxin e ER 75 mg capsule,ex tended release 24 hr Take 1 capsule every day by oral route. 03/29 completed Not Available Not Available Not Available atorvastat in 10 mg tablet Take 1 tablet every day by oral route in the evening. active Not Available Not Available No t Available metoprolol succinate ER 50 mg tablet,ext ended release 24 hr TAKE 1 TABLET BY MOUTH DAILY 01/31 completed Not Available Not Available Not Available ranitidine 300 mg tablet TAKE 1 TABLET BY MOUTH EVERY MORNING 02/16 completed Not Available Not Available Not Available metoprolol succinate ER 50 mg tablet,ext ended release Take 1 tablet every day by oral route. 01/08 completed Not Available Not Available Not Available famotidine 40 mg tablet TAKE 1 TABLET DAILY WITH A MEAL 2022 active Not Available Not Available Not Avai lable prednisone 20 mg tablet TAKE 3 TABLETS BY MOUTH EVERY DAY FOR 5 DAYS 02/07 completed Not Available Not Available Not Available Synthroid 100 mcg tablet TAKE 1 TABLET DAILY. (DISCONT INUE 112MCG DOSE) 2023 active Not Available Not Available Not Avai lable metoprolol succinate ER 100 mg tablet,ext ended release 24 hr TAKE 2 TABLETS DAILY 2022 active Not Available Not Available Not Avai lable venlafaxin e ER 150 mg capsule,ex tended release 24 hr TAKE 1 CAPSULE DAILY 2022 active Not Available Not Available Not Avai lable valsartan 80 mg tablet TK 1 T PO QD 07/19 completed Not Available Not Available Not Available phentermin e 37.5 mg tablet TAKE 1 TABLET BY MOUTH ONCE DAILY 07/09 completed Not Available Not Available Not Available tramadol 50 mg tablet TAKE 1 TABLET BY MOUTH EVERY 6 HOURS NEEDED active Not Available Not Available No t Available triamcinol one acetonide 0.1 % topical cream APPLY TOPICALL Y TO RASH TWICE DAILY DIRECTED . DO NOT APPLY TO FACE OR GENITALS 08/03 completed Not Available Not Available Not Available ondansetro n 8 mg disintegra ting tablet DISSOLVE 1 TABLET ON THE TONGUE EVERY 8 HOURS NEEDED 02/08 completed Not Available Not Available Not Available Kenalog 40 mg/mL suspension for injection active [facility]# [id number] Not Available Not Available Not Available meloxicam 7.5 mg tablet TAKE ONE TABLET BY MOUTH TWICE DAILY WITH A MEAL NEEDED active Not Available Not Available No t Available famotidine 20 mg tablet TK 1 T PO BID 10/14 completed Not Available Not Available Not Available valsartan 320 mg tablet TAKE 1 TABLET DAILY 2022 active Not Available Not Available Not Avai lable hydrochlor othiazide 12.5 mg capsule Take 1 capsule every day by oral route. 07/25 completed Not Available Not Available Not Available omeprazole 20 mg capsule,de layed release TK ONE C PO BID 05/30 completed Not Available Not Available Not Available hydrochlor othiazide 25 mg tablet TAKE 1 TABLET DAILY 2022 active Not Available Not Available Not Avai lable Synthroid 112 mcg tablet Take 1 tablet every day by oral route. active Not Available Not Available No t Available norethindr one acetate 5 mg tablet Take 1 tablet every day by oral route. active Not Available Not Available No t Available zolpidem 10 mg tablet TK 1 T PO HS X 1 DAY 30 MINUTES BEFORE SLEEP STUDY 05/30 completed Not Available Not Available Not Available Vitamin D2 1,250 mcg (50,000 unit) capsule Take 1 capsule every week by oral route as directed . 01/16 completed Not Available Not Available Not Available ondansetro n 4 mg disintegra ting tablet TK 1 T PO Q 6 TO 8 H PRF NAUSEA 10/14 completed Not Available Not Available Not Available metformin ER 500 mg tablet,ext ended release 24 hr Take 2 tablets every day by oral route at dinner. active Not Available Not Available No t Available valsartan 160 mg tablet TAKE 1 TABLET BY MOUTH DAILY 03/29 completed Not Available Not Available Not Available neomycin-p olymyxin-h ydrocort 3.5 mg-10,000 unit/mL-1 % ear drops,susp INSTILL 3 DROPS INTO RIGHT EAR BID active Not Available Not Available No t Available Ciprodex 0.3 %-0.1 % ear drops,susp ension active Not Available Not Available Not Available bupropion HCl XL 150 mg 24 hr tablet, extended release TK 1 T PO QAM 10/28 completed Not Available Not Available Not Available PreviDent 5000 Sensitive 1.1 %-5 % dental paste active Not Available Not Available Not Available levothyrox ine 75 mcg capsule Take 1 capsule every day by oral route. 2015 active Not Available Not Available Not Avai lable Trulicity 1.5 mg/0.5 mL subcutaneo us pen injector ADMINIST ER 1.5 MG UNDER THE SKIN EVERY WEEK DIRECTED active Not Available Not Available No t Available Belviq XR 20 mg tablet,ext ended release Take 1 tablet every day by oral route. 12/06 completed Not Available Not Available Not Available Mounjaro 5 mg/0.5 mL subcutaneo us pen injector INJECT 5MG EVERY WEEK SUBCUTAN EOUSLY 02/12 completed Not Available Not Available Not Available Mounjaro 10 mg/0.5 mL subcutaneo us pen injector INJECT 10 MG UNDER SKIN EVERY WEEK 02/12 completed Not Available Not Available Not Available Mounjaro 2.5 mg/0.5 mL subcutaneo us pen injector active Not Available Not Available Not Available Vitals Date Recorded Body mass index (BMI) Body height Oxygen saturation Oxygen saturation in Arterial blood by Pulse oximetry Heart rate Respiratory rate Body temperature Body weight Systolic And Diastolic Provider Name and Address Organization Details Last Updated DateTime 3 31.6 kg/m2 172.72 cm 98 % 98 % 89 /min 16 /min 97.5 [degF] 26290.2 1 g 120/82 mm[Hg] Not Available [facility] 3 18:01:44 Date Recorded Body height Body weight Heart rate Oxygen saturation Oxygen saturation in Arterial blood by Pulse oximetry Body temperature Systolic And Diastolic Provider Name and Address Organization Details Last Updated DateTime 3 172.72 cm 614195. 28 g 88 /min 98 % 98 % 97.8 [degF] 128/82 mm[Hg] Tmaar Araiza RN [facility] 3 16:14:31 Date Recorded Body height Body mass index (BMI) Body weight Heart rate Oxygen saturation Oxygen saturation in Arterial blood by Pulse oximetry Body temperature Systolic And Diastolic Provider Name and Address Organization Details Last Updated DateTime 3 172.72 cm 35.6 kg/m2 548793. 61 g 70 /min 98 % 98 % 97.9 [degF] 132/86 mm[Hg] Tamar Araiza RN [facility] 3 14:17:01 Date Recorded Body mass index (BMI) Body height Oxygen saturation Oxygen saturation in Arterial blood by Pulse oximetry Heart rate Respiratory rate Body temperature Body weight Systolic And Diastolic Systolic And Diastolic Provider Name and Address Organization Details Last Updated DateTime 2 35.1 kg/m2 172.72 cm 98 % 98 % 90 /min 16 /min 98.1 [degF] 199889. 84 g 160/100 mm[Hg] 150/100 mm[Hg] Not Available [facility] 3 18:01:44 Date Recorded Body height Oxygen saturation Oxygen saturation in Arterial blood by Pulse oximetry Heart rate Body temperature Body weight Systolic And Diastolic Systolic And Diastolic Provider Name and Address Organization Details Last Updated DateTime 2 172.72 cm 99 % 99 % 96 /min 97 [degF] 995975. 88 g 144/94 mm[Hg] 150/100 mm[Hg] Not Available [facility] 3 18:01:44 Social History Question Answer Notes LastModified by Organizat ion Details LastModified Time Tobacco Smoking Status Never Smoker Not Available [facility] 09/25/2022 18:01:16 Do You Have An Advance Directive? No [id number] Information not available 09/25/2022 What Is Your Level Of Caffeine Consumption? Heavy [id number] 026 Information not available 09/25/2022 In The 14 Days Before Symptom Onset, Have You Had Close Contact With A Laboratory-confirm ed COVID-19 While That Case Was Ill? No [id number] 026 Information not available 09/25/2022 In The 14 Days Before Symptom Onset, Have You Had Close Contact With A Person Who Is Under Investigation For COVID-19 While That Person Was Ill? No [id number] 026 Information not available 09/25/2022 What Type Of Diet Are You Following? REGULAR MIGRATION.6860045 026 Information not available 09/25/2022 Have There Been Any Changes To Your Family Or Social Situation? No [id number] 026 Information not available 09/25/2022 Are There Any Guns Present In Your Home? No [id number].[id number] 026 Information not available 09/25/2022 Do You Use Insect Repellent Routinely? No MIGRATION.[id number] 026 Information not available 09/25/2022 Do You Have A Medical Power Of Visual Merchandising Manager? No [id number].[id number] 026 Information not available 09/25/2022 What Was The Date Of Your Most Recent Tobacco Screening? 03/08/2022 [id number].[id number] 026 Information not available 09/25/2022 What Is Your Relationship Status? Single MIGRATION.[id number] 026 Information not available 09/25/2022 Do You Use Your Seat Belt Or Car Seat Routinely? Yes [id number].[id number] 026 Information not available 09/25/2022 Do You Have Smoke And Carbon Monoxide Detectors In Your Home? Yes MIGRATION.[id number] 026 Information not available 09/25/2022 Do You Use Sunscreen Routinely? Yes MIGRATION.[id number] 026 Information not available 09/25/2022 Have You Recently Traveled Abroad? No MIGRATION.[id number] 026 Information not available 09/25/2022 Do You Have Any Dietary Restrictions? No MIGRATION.[id number] 026 Information not available 09/25/2022 Sex: Unknown Functional Status Question Answer Note LastModified by Organizat ion Details LastModified Time Do you use any illicit or recreational drugs? No [id number].[id number] Information not available 09/25/2022 Do you or have you ever used any other forms of tobacco or nicotine? No MIGRATION.[id number] 8631 Information not available 09/25/2022 What is your level of alcohol consumption? 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 Occasional MIGRATION.[id number] Information not available 09/25/2022 Mental Status None recorded. Family History Relationship Description Onset Age of this Age Resolved Age Notes LastModified by Organization Details LastModified Time Mother Hypertensive disorder [id number] Not available 09/25/2022 18:01:18 Mother Diabetes mellitus MIGRATION.034 [id number] Not available 09/25/2022 18:01:18 Father Celiac disease MIGRATION.142 [id number] Not available 09/25/2022 18:01:18 Maternal Grandmother Malignant tumor of breast MIGRATION.946 [id number] Not available 09/25/2022 18:01:18 Paternal Grandmother Malignant tumor of breast MIGRATION.817 [id number] Not available 09/25/2022 18:01:19 Unspecified Relation Hyperlipidem ia MIGRATION.469 [id number] Not available 09/25/2022 18:01:19 Medical History Condition Response OBESITY Y ANXIETY DISORDER Y DEPRESSION (INCLUDING POST ) Y HEARTBURN / REFLUX Y HYPERTENSION Y Gynecological HistoryNo gynecological history recorded. Obstetrics History GPAL:G 3 P 0 0 0 2 Type Value Living 2 Total 3 Past Encounters Encounter ID Performer Location Encounter Start Date Encounter Closed Date Diagnosis/Indication Diagnosis SNOMED-CT Code Diagnosis ICD10 Code Diagnosis Note [id number] ALON Nicholas [facility] [address] [place] [address] 08/03/2021 00:00:00 08/27/2021 18:35:27 [id number] LAON Nicholas [facility] [place] [address] [place] [address] 09/14/2021 00:00:00 09/23/2021 18:06:26 [id number] Jorge Rico MD [facility] [place] [address], [address] [place] [address] 12/13/2021 00:00:00 12/13/2021 17:59:13 [id number] Jorge Rico MD [facility] [address] [place] [address] 02/08/2022 00:00:00 02/24/2022 09:09:11 [id number] Jorge Rico MD [facility] [address] [place] [address] 03/08/2022 00:00:00 03/24/2022 23:31:31 [id number] ALON Nicholas [facility] [address] [place] [address] 04/09/2022 00:00:00 04/25/2022 20:02:50 [id number] ALON Nicholas [facility] [address] [place] [address] 07/09/2022 00:00:00 07/25/2022 12:38:48 [id number] ALON Nicholas [facility] [address] [place] [address] 07/17/2022 00:00:00 07/23/2022 20:37:23 [id number] ALON Nicholas [facility] [address] [place] [address] 09/03/2022 00:00:00 09/24/2022 18:58:45 [id number] ALON Nicholas [facility] [address] [place] [address] 12/02/2022 16:05:26 12/02/2022 16:45:26 Mass of left breast 9650785401 6998723 N63.20 refer for diagnostic mammogram and u/s left breast. timely scheduling needed [id number] ALON Nicholas [facility] [address] [place] [address] 02/12/2023 14:02:45 02/12/2023 14:32:47 Sprain of right ankle 6931115784 5493410 S93.401A check xray f/u of right ankle/foot Health Concerns Section Related Observation LastModified by Organization Detai ls LastModified Time None Recorded Concern Status LastModified by Organization Details LastModified Time None Recorded Advance Directives Directive N: Payers Encounter Date Sequence Insurance Name Policy Number Policy Gallardo Covered Member ID Gallardo Member ID Guarantor Name 12/02/2022 1 [employer] [id number] Nicole Kuer [id number] Nicole Kuer 02/12/2023 1 [employer] [id number] Nicole Ashtonyder [id number] Nicole Ashtonyder Notes Date Note Type Note Provider Name and Address Organization Details Recorded Time 07/09/20 22 text/ht ml Generic HPI TemplateReported bypatient.Notes:Pt is here to f/u on mounjaro. She states its not really helping and causes a slight upset stomach but nothing she cant handle. Not Available [facility] 07/25/2022 12:38:48 07/17/20 22 text/ht ml Back Pain - GeneralReported bypatient.Notes:pt is here to f/u on bp after metoprolol ER increased to 200mg daily. All other bp meds stayed the same. she has no chest pain, SOB, WORRELL, or PND. Not Available [facility] 07/23/2022 20:37:23 09/03/19 23 text/ht ml DizzinessReported bypatient.Quality:symptoms worse in the evening Severity:no effect on daily activities Duration:intermittent episodes lasting: (10 seconds); lasts <5 minutes Onset/Timing:actual date of onset: (couple months) Context:non-smoker Modifying Factors:going from sit to stand Alleviating factors:holding still Aggravating factors:positional change Associated Symptoms:no double vision; no dysphagia; no slurred speech; no foggy vision; no blindness; no spots in field of vision; no eye pain; no hearing loss; no difficulty understanding speech; no ear discharge; no ringing in the ears; no anxiety or unsteady feelings; no syncope; no loss of consciousness; no headache; no head pressure; no vomiting; no weak limbs; no facial numbness; no difficulty with speech; no tingling around the mouth; normal stools; no seizure; no facial weakness; no tingling of fingers; no audible eye movements;blurred vision;right ear feel pressured;popping noise in the ears;earache;sensation of heart racing;history of falls;history of hypertension;history of diabetesNotes:HypertensionReport ed bypatient.Duration:has noted for years Alleviating Factors:medication Aggravating Factors:recent diet change;medication Self Care:not under emotional stress Associated Symptoms:no shortness of breath; no fatigue; no palpitations; no decline in exercise capacity; no snoringHypothyroidismReported bypatient.Notes:labs are back t4 free elevated some Not Available [facility] 09/24/2022 18:58:45 12/03/19 23 text/ht ml pt is here for finding 2 lumps in her left breast, first noticed about a month ago. doesnt think they have changed size. non-tender. no skin discoloratoin ALON Nicholas [address], [place], [address], [facility] 12/25/2022 20:46:52 02/13/20 23 text/ht ml Generic HPI TemplateReported bypatient.Location:right foot, around the arch of foot Quality:constant dull pain Duration:2 months Context:stepped on uneven concrete and twisted foot ALON Nicholas [address], [place], [address], [facility] 02/23/2023 16:50:29 OBGyn Episode No OBEpisode recorded.
--- OUTSIDE RECORDS SUMMARY | 2024-12-20 18:28 | XMS_ITS | Encounter Summary ---
Author Organization [facility] Address [address] [place] [address] Care Team Providers Care Liquid Yeast Supervisor Name Role Phone Unavailable Primary Care Provider Unavailabl e Encounter Details Date Type Department Care Team (Late st Contact Info) Description 11/02/2020 Lab Requisition [facility] Lab [address] [place] [address] Saulo Connelly MD [address] [place] [address] Social History Tobacco Use Types Packs/Day Years Used Date Smoking Tobacco: Never Assessed Comments Unknown Sex and Gender Information Value Date Recorded Sex Assigned at Not on file Legal Sex Female 1:31 PM CDT Gender Identity Not on file Sexual Orientation Not on file documented as of this encounter Plan of Treatment Not on file documented as of this encounter Procedures Procedure Name Priority Date/Time Associated Diagnosis Comments DERMATOPATHOLOGY Routine 11/01/2020 3:33 AM CDT documented in this encounter Results * DERMATOPATHOLOGY (11/01/2020 3:33 AM CDT) Case Report Dermatopathology Report Case: [id number] Authorizing Provider: Saulo Connelly MD Collected: 11/01/2020 03:33 AM Ordering Location: [facility] Lab Received: 11/02/2020 01:53 PM Pathologist: Gabriela Garcia MD Specimen: Skin, posterior left arm 3:54 PM CDT DERMATOPATHOLOGY LABORATORY Final Diagnosis Specimen A. SKIN, posterior left arm: GRANULOMA ANNULARE (L92.0) 3:54 PM CDT DERMATOPATHOLOGY LABORATORY at 1554 CDT Clinical History R/O granuloma annulare. 3:54 PM CDT DERMATOPATHOLOGY LABORATORY Gross Description Specimen A: Received is one formalin filled container labeled with the patient's name and designated posterior left arm. The specimen consists of a punch biopsy measuring [id number], bisected. Jar 0. 3:54 PM CDT DERMATOPATHOLOGY LABORATORY Microscopic Description Specimen A. SKIN, posterior left arm: There are lymphocytes around blood vessels and histiocytes between collagen bundles some of which are arranged in a palisade. The collagen is focally altered. 3:54 PM CDT DERMATOPATHOLOGY LABORATORY Disclaimer An external and internal positive and negative controls are appropriate for the histochemical, immunohistochemical and immunofluorescence stain(s) in this case (if any), except where stated explicitly. The performance characteristics of the stain(s) cited in this report were developed and its performance characteristic determined by the Dermatopathology Laboratory at [facility], directed by Dr. Shayna Garcia. These tests need not be, and therefore are not, approved by the [place] Food and Drug Administration. The tests are used for clinical purposes. Billing Codes Specimen Charges Stain Charges 79702 1 3:54 PM CDT DERMATOPATHOLOGY LABORATORY Embedded Images 3:54 PM CDT DERMATOPATHOLOGY LABORATORY Pathology/Cytolo gy TISSUE SPECIMEN FROM SKIN / Unknown 11/01/2020 3:33 AM CDT 11/02/2020 1:53 PM CDT Saulo Connelly MD LAB - PATHOLOGY/CYTOLOGY ORD ERABLES Final Result DERMATOPATHOLOGY LABORATORY [facility] - Department of Dermatology [address], [address] [phone] documented in this encounter Visit Diagnoses Not on filedocumented in this encounter
--- OUTSIDE RECORDS SUMMARY | 2024-12-20 18:28 | XMS_ITS | Referral Summary ---
Author Organization [facility] [address] Address [address] [place] [address] Phone Care Team Providers Care Repairing Calibrator Name Role Phone StevememoZara Primary Care Pr ovider Encounters Date Type Department Care Team Description 12/02/2024 3:30 PM CDT Ancillary Procedure [facility] [address] [place] [address] Encounter for screening mammogram for breast cancer from Last 3 Months Allergies No known active allergies Medications hydroCHLOROthia zide (HYDRODIURIL) 12.5 mg tablet take 1 tablet by oral route every day 0 0 01/24/2014 Active metoprolol XL (TOPROL-XL) 50 mg 24 hr tablet take 1 tablet by oral route every day 0 0 01/24/2014 Active ergocalciferol (VITAMIN D2) 50,000 unit capsule take 1 capsule by oral route every week 0 0 02/14/2016 Active venlafaxine XR (EFFEXOR-XR) 37.5 mg 24 hr capsule 4 capsules (150 mg total) 1 11/25/2016 Active levothyroxine (SYNTHROID, LEVOTHROID) 100 mcg tablet Take 112 mcg by mouth daily Active valsartan (DIOVAN) 160 mg tablet Take 2 tablets (320 mg total) by mouth daily Active famotidine (PEPCID) 40 mg tablet Active Mounjaro 2.5 mg/0.5 mL pen injector INJECT 2.5 MG UNDER SKIN EVERY WEEK 03/18/2022 Active norethindrone (AYGESTIN) 5 mg tabletIndicatio ns:Menorrhagia with regular cycle Take 1 tablet (5 mg total) by mouth daily 90 tablet 3 06/04/2024 Active norethindrone (AYGESTIN) 5 mg tablet Take 1 tablet (5 mg total) by mouth daily 30 tablet 07/07/2024 07/07/20 25 Active Active Problems Problem Noted Date Diagnosed Date Obesity (BMI 30-39.9) 02/14/2016 Overview (11/02/2016): BMI 40+ severely obese Celiac disease 01/25/2015 Overview (11/02/2016): Celiac disease Hypertension 01/24/2014 Overview (11/02/2016): Hypertension Hypothyroidism 01/24/2014 Overview (11/02/2016): Hypothyroid Social History Tobacco Use Types Packs/Day Years Used Date Smoking Tobacco: Never Smokeless Tobacco: Never Tobacco Cessation:Counseling Given: Not Answered Alcohol Use Standard Drinks/Week Comments Yes 0 (1 standard drink = 0.6 oz pur e alcohol) Comments No Sex and Gender Information Value Date Recorded Sex Assigned at Not on file Legal Sex Female 11:58 AM ASBESTOS COVERER Gender Identity Not on file Sexual Orientation Not on file 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 Not on file Not on file Last Filed Vital Signs Vital Sign Reading Time Taken Comments Blood Pressure 152/88 06/04/2024 1:12 PM ASBESTOS COVERER Pulse 97 02/27/2017 3:05 PM CDT Temperature 36.5 C (97.7 F) 03/22/2020 3:27 PM CDT Respiratory Rate 16 02/27/2017 3:05 PM CDT Oxygen Saturation - - Inhaled Oxygen Concentration - - Weight 101.6 kg (223 lb 15.8 oz) 12/02/2024 3:28 PM CDT Height 165.1 cm (5' 5 ) 12/02/2024 3:28 PM CDT Body Mass Index 37.27 12/02/2024 3:28 PM CDT Plan of Treatment Not on file Procedures Procedure Name Priority Date/Time Associated Diagnosis Comments SCREENING MAMMOGRAM BILATERAL W EFREN Schedule Routine, Read Routine (OP Routine) 12/02/2024 3:27 PM CDT Encounter for screening mammogram for breast cancer HIGH RISK HPV DNA DETECTION WITH GENOTYPING Routine 06/04/2024 1:51 PM ASBESTOS COVERER Screening for malignant neoplasm of the cervix from Last 3 Months or Most Recently Relevant to Health Maintenance Results * Screening Mammogram Bilateral W Efren (12/02/2024 3:27 PM CDT) Anatomical Region Laterality Modality Breast Bilateral Mammography Impressions 12/03/2024 8:25 AM CDT There is no mammographic evidence of malignancy. A 1 year screening mammogram is recommended. BI-RADS: 1 - Negative. The patient has been or will be contacted. The patient will be entered into a reminder system with a target due date of 1 year for her next mammogram. Narrative 12/03/2024 8:25 AM CDT EXAMINATION: SCREENING MAMMOGRAM BILATERAL W EFREN ORDERING HEALTHCARE PROVIDER: TONIA CARTAGENA HISTORY: Routine screening mammography. COMPARISON: 12/02/23.12/05/2022, 04/19/2022, 04/18/2021 TECHNIQUE: CC and MLO views of the bilateral breasts were obtained with digital technique using breast tomosynthesis with C view. Computer aided detection was utilized. FINDINGS: DENSITY: There are scattered fibroglandular elements in the bilateral breasts. BREASTS: There are no suspicious masses, suspicious calcifications, or other suspicious findings in either breast. There has been no suspicious interval change. us Tonia Cartagena MD IMG MAMMO PROCEDURES Final Result * High Risk HPV DNA Detection with Genotyping (Molecular component) (06/04/2024 1:51 PM ASBESTOS COVERER) HPV HR 16 Not Detected Not Detected [facility] Comment:Testing performed by : [facility], [address] [place]., [address] HPV HR 18 Not Detected Not Detected [facility] Comment:Testing performed by : [facility], [address] [place]., [address] HPV HR Non 16/18 Not Detected Not Detected [facility] Comment: Interpretive Data Nucleic acid amplification for detection of high-risk Human Papilloma virus (HPV) is performed by the Roc [employer] 6800 HPV test. This assay specifically detects HPV-16 and HPV-18 genotypes. The following HPV genotypes are detected as high-risk HPV: HPV-31, 33, 35, ,39, 45, 51, 52, 56, 58, 59, 66, and 68. This assay has been approved by the [place] Food and Drug Administration for detection of HPV in cervical specimens collected by a physician using an endocervical brush/spatula or cervical broom and placed in the ThinPrep Pap Test PreservCyt collection containers. The performance characteristics of this test have been verified by the [facility] Molecular Infectious Disease laboratory. Correlate with separately reported cytology results, as applicable. Interpretive data last revised 23 Testing performed by: [facility], [address] [place]., [address] Endocervical 06/04/2024 1:51 PM ASBESTOS COVERER 06/07/2024 10:34 AM ASBESTOS COVERER Narrative [facility] - 06/08/2024 2:17 AM ASBESTOS COVERER Clinical history and diagnosis->DX Z12.4 Testing type->Screening Last menstrual period (date if known)->N/A Previous negative PAP?->Yes Tonia Cartagena MD LAB BODY FLUIDS AND S TOOLS ORDERABLES Final Result [facility] [address] Department [place] [address] [facility] from Last 3 Months or Most Recently Relevant to Health Maintenance Insurance [employer] OPEN ACCESS [facility] [employer] [facility] [employer] Care Teams Repairing Calibrator Relationship Specialty Start Date End Date Zara Duarte PA PCP - General Physician Animal Sticker 02/27/17
--- OUTSIDE RECORDS SUMMARY | 2024-12-20 18:28 | XMS_ITS | Clinical Summary ---
Author Organization [facility] [address] Address [address] [place] [address] Phone Care Team Providers Care Grinder Watch Parts Name Role Phone Zara Duarte Primary Care Pr ovider Allergies No known active allergies Medications hydroCHLOROthia [...] (11/02/2016): Hypertension Hypothyroidism 01/24/2014 Overview (11/02/2016): Hypothyroid Encounters Date Type Department Care Team Description 12/02/2024 3:30 PM CDT Ancillary Procedure [facility] [address] [place] [address] Encounter for screening mammogram for breast cancer from Last 3 Months Surgical History Surgery Date Site/Laterality Comments ENDOMETRIAL ABLATION W/ NOVASURE 07/28/2013 - 07/27/2014 ABDOMINOPLASTY 07/28/2023 - 07/27/2024 Family History Medical History Relation Name Comments Breast cancer Paternal Grandmother Cancer , breast; Dementia Paternal Grandmother Dementi a; Relation Name Status Comments Paternal Grandmother Social History Tobacco Use Types Packs/Day Years Used Date Smoking Tobacco: Never Smokeless Tobacco: Never Tobacco Cessation:Counseling Given: Not Answered Alcohol Use Standard Drinks/Week Comments Yes 0 (1 standard drink = 0.6 oz pur e alcohol) Comments No Sex and Gender Information Value Date Recorded Sex Assigned at Not on file Legal Sex Female 11:58 AM SHEET METAL HELPER Gender Identity Not on file Sexual Orientation Not on file 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 Not on file Not on file Obstetrics History Para Term AB IAB SAB Ectopic Multiple Livin g Live Births 3 2 2 0 1 2 Date Outcome GA Total Labor Labor/2nd/3rd Weight Sex Type Anes PTL Melody A1 A5 Name Clin Term Term AB Last Filed Vital Signs Vital Sign Reading Time Taken Comments Blood Pressure 152/88 06/04/2024 1:12 PM SHEET METAL HELPER Pulse 97 02/27/2017 3:05 PM CDT Temperature 36.5 C (97.7 F) 03/22/2020 3:27 PM CDT Respiratory Rate 16 02/27/2017 3:05 PM CDT Oxygen Saturation - - Inhaled Oxygen Concentration - - Weight 101.6 kg (223 lb 15.8 oz) 12/02/2024 3:28 PM CDT Height 165.1 cm (5' 5 ) 12/02/2024 3:28 PM CDT Body Mass Index 37.27 12/02/2024 3:28 PM CDT Plan of Treatment Health Maintenance Due Date Last Done Comments Colon Cancer Screening-Colonoscopy 1975 Depression Screening 1975 Hepatitis C Screening 1975 DTaP/Tdap/Td Vaccine (1 - Tdap) 1986 Hepatitis B Screening 1993 Covid-19 Vaccine (2 - season) 2024 10/03/2020 Influenza Vaccine (Season Ended) 2025 Cervical Cancer Screening 06/04/20252023, 06/04/2024, 03/22/2020, Additional history exists Regular Well Visit/Exam 18-64 06/04/2025 06/04/2024, 04/21/2023, 04/12/2022, Additional history exists Breast Cancer Screening-Mammogram 12/02/2025 12/02/2024, 12/02/2023, 12/05/2022, Additional history exists Pneumococcal vaccine <65 Aged Out No longer eligible based on patient's age to complete this topic Procedures Procedure Name Priority Date/Time Associated Diagnosis Comments SCREENING MAMMOGRAM BILATERAL W EFREN Schedule Routine, Read Routine (OP Routine) 12/02/2024 3:27 PM CDT Encounter for screening mammogram for breast cancer HIGH RISK HPV DNA DETECTION WITH GENOTYPING Routine 06/04/2024 1:51 PM SHEET METAL HELPER Screening for malignant neoplasm of the cervix [...] with Genotyping (Molecular component) (06/04/2024 1:51 PM SHEET METAL HELPER) HPV HR 16 Not Detected Not Detected [facility] Comment:Testing performed by : [facility], [address] [place]., [address] HPV HR 18 Not Detected Not Detected [facility] Comment:Testing performed by : [facility], [address] [place]., [address] HPV HR Non 16/18 Not Detected Not Detected [facility] Comment: Interpretive Data Nucleic acid amplification for [...] this test have been verified by the [facility] Molecular Infectious Disease laboratory. Correlate with separately reported cytology results, as applicable. Interpretive data last revised 23 Testing performed by: [facility], [address] [place]., [address] Endocervical 06/04/2024 1:51 PM SHEET METAL HELPER 06/07/2024 10:34 AM SHEET METAL HELPER Narrative [facility] - 06/08/2024 2:17 AM SHEET METAL HELPER Clinical history and diagnosis->DX Z12.4 Testing type->Screening Last menstrual period (date if known)->N/A Previous negative PAP?->Yes Tonia Cartagena MD LAB BODY FLUIDS AND S TOOLS ORDERABLES Final Result [facility] [address] [address] Department [place] [address] [facility] from Last 3 Months or Most Recently Relevant to Health Maintenance Insurance [employer] OPEN ACCESS [facility] AETNA [facility] AETNA Care Teams Grinder Watch Parts Relationship Specialty Start Date End Date Zara Duarte PA PCP - General Physician General Helper 02/27/17
--- OUTSIDE RECORDS SUMMARY | 2024-12-20 18:28 | XMS_ITS | Data Portability ---
Author Organization [facility] Address [address] [place] [address] Care Team Providers Care Dialysis Patient Care Technician Name Role Phone DESTINY JOHNSON Primary Care Provider Unavailab le Assessment No assessment recorded. Plan of Treatment Reminders Order Date Submit Date Provider Last Modified By Organization Details Last Modified Time Details Appointments ANY 15 2024 03:45P M ALON Nicholas Not available Not available Not available Lab HbA1c (hemoglob in A1c), blood 2023 024 [email or web address] [facility], [address], [place], [address], 08/27/2024 18:12:35 CBC w/ auto diff 2023 024 [email or web address] [facility], [address], [place], [address], 08/27/2024 18:12:41 CMP, serum or plasma 2023 024 [email or web address] [facility], [address], [place], [address], 08/27/2024 18:12:28 TSH + free T4, serum 2023 024 [email or web address] [facility], [address], [place], [address], 08/27/2024 18:12:32 HbA1c (hemoglob in A1c), blood 2023 024 [email or web address] [facility], [address], [place], [address], 12/18/2023 04:36:19 CBC w/ auto diff 2023 [facility], [address], [place], [address], 12/18/2023 04:36:20 CMP, serum or plasma 2023 [facility], [address], [place], [address], 12/18/2023 04:36:17 vitamin B12 + folate, serum or blood 2023 [facility], [address], [place], [address], 12/18/2023 04:36:18 lipid panel, serum 2023 [facility], [address], [place], [address], 12/18/2023 04:36:15 TSH + free T4, serum 2023 [facility], [address], [place], [address], 12/18/2023 04:36:17 Referral None recorded. Procedures None recorded. Surgeries None recorded. Imaging US, duplex, renal artery 2023 [facility] (Imaging), [address], [place], [address], 12/24/2023 17:25:18 Medication Orders clonidine HCl 0.1 mg tablet 2023 [id number], [address] [facility], [place], [id number], 02/10/2024 18:54:24 Patient TargetsNo targets recorded. Patient Instructions Encounter Date Encounter Id Patient Instructions Last Modified By Organization Details Last Modified Time 12/08/2023 [id number] A healthy lifestyle: care instructions Not available 12/25/2023 09:04:54 06/09/2024 [id number] A healthy lifestyle: care instructions Not available 06/09/2024 16:42:32 Reason for Referral None Reported. Results Created Date Observation Date Name Description Value Unit Range Abnormal Flag Note LastModifiedBy Organization Detail LastModifiedTime 12/17/19 24 12/18/2023 LIPID PANEL W/ CHOL/ HDL RATIO cholesterol, total 157 mg/dL 100-19 9 Not Available [facility] ([facility]) [address] [place], [address], 12/18/2023 04:36:15 12/17/19 24 12/18/2023 LIPID PANEL W/ CHOL/ HDL RATIO triglyceride s 73 mg/dL 0-149 Not Available [facility] ([facility]) [address] [place], [address], 12/18/2023 04:36:15 12/17/19 24 12/18/2023 LIPID PANEL W/ CHOL/ HDL RATIO HDL cholesterol 42 mg/dL >39 Not Available [facility] ([facility]) [address] [place], [address], 12/18/2023 04:36:15 12/17/19 24 12/18/2023 LIPID PANEL W/ CHOL/ HDL RATIO VLDL cholesterol dao 14 mg/dL 5-40 Not Available [facility] ([facility]) [address] [place], [address], 12/18/2023 04:36:15 12/17/19 24 12/18/2023 LIPID PANEL W/ CHOL/ HDL RATIO LDL chol calc ([facility]) 101 mg/dL 0-99 above high normal Not Available [facility] ([facility]) [address] [place], [address], 12/18/2023 04:36:15 12/17/19 24 12/18/2023 LIPID PANEL W/ CHOL/ HDL RATIO T. chol/HDL ratio 3.7 ratio 0.0-4. 4 T. Chol/ HDL Ratio Men Women 1/2 Avg.R isk 3.4 3.3 Avg.R isk 5.0 4.4 2X Avg.R isk 9.6 7.1 3X Avg.R isk 23.4 11.0 Not Available [facility] ([facility]) [address] [place], [address], 12/18/2023 04:36:15 12/17/19 24 12/18/2023 TSH+F REE T4 TSH 4.680 uIU/m L 0.450- 4.500 above high normal Not Available [facility] ([facility]) [address] [place], [address], 12/18/2023 04:36:16 12/17/19 24 12/18/2023 TSH+F REE T4 T4,free(dire ct) 1.15 NG/dL 0.82-1 .77 Not Available [facility] ([facility]) [address] [place], [address], 12/18/2023 04:36:16 12/17/19 24 12/18/2023 COMP. METAB OLIC PANEL (14) glucose 144 mg/dL 70-99 above high normal Not Available [facility] ([facility]) [address] [place], [address], 12/18/2023 04:36:17 12/17/19 24 12/18/2023 COMP. METAB OLIC PANEL (14) BUN 17 mg/dL 6-24 Not Available [facility] ([facility]) [address] [place], [address], 12/18/2023 04:36:17 12/17/19 24 12/18/2023 COMP. METAB OLIC PANEL (14) creatinine 0.71 mg/dL 0.57-1 .00 Not Available [facility] ([facility]) [address] [facility] [place], [address], 12/18/2023 04:36:17 12/17/19 24 12/18/2023 COMP. METAB OLIC PANEL (14) eGFR 105 mL/mi n/1.7 3 >59 Not Available [facility] ([facility]) [address] [facility] [place], [address], 12/18/2023 04:36:17 12/17/19 24 12/18/2023 COMP. METAB OLIC PANEL (14) BUN/creatini ne ratio 24 9-23 above high normal Not Available [facility] ([facility]) [address] [facility] [place], [address], 12/18/2023 04:36:17 12/17/19 24 12/18/2023 COMP. METAB OLIC PANEL (14) sodium 142 mmol/ L 134-14 4 Not Available [facility] ([facility]) [address] [facility] [place], [address], 12/18/2023 04:36:17 12/17/19 24 12/18/2023 COMP. METAB OLIC PANEL (14) potassium 4.2 mmol/ L 3.5-5. 2 Not Available [facility] ([facility]) [address] [facility] [place], [address], 12/18/2023 04:36:17 12/17/19 24 12/18/2023 COMP. METAB OLIC PANEL (14) chloride 104 mmol/ L 96-106 Not Available [facility] ([facility]) [address] [facility] [place], [address], 12/18/2023 04:36:17 12/17/19 24 12/18/2023 COMP. METAB OLIC PANEL (14) carbon dioxide, total 24 mmol/ L 20-29 Not Available [facility] ([facility]) [address] [facility] [place], [address], 12/18/2023 04:36:17 12/17/19 24 12/18/2023 COMP. METAB OLIC PANEL (14) calcium 9.6 mg/dL 8.7-10 .2 Not Available [facility] ([facility]) [address] [place], [address], 12/18/2023 04:36:17 12/17/19 24 12/18/2023 COMP. METAB OLIC PANEL (14) protein, total 6.4 g/dL 6.0-8. 5 Not Available [facility] ([facility]) [address] [place], [address], 12/18/2023 04:36:17 12/17/19 24 12/18/2023 COMP. METAB OLIC PANEL (14) albumin 4.1 g/dL 3.9-4. 9 Not Available [facility] ([facility]) [address] [place], [address], 12/18/2023 04:36:17 12/17/19 24 12/18/2023 COMP. METAB OLIC PANEL (14) globulin, total 2.3 g/dL 1.5-4. 5 Not Available [facility] ([facility]) [address] [place], [address], 12/18/2023 04:36:17 12/17/19 24 12/18/2023 COMP. METAB OLIC PANEL (14) A/G ratio 1.8 1.2-2. 2 Not Available [facility] ([facility]) [address] [place], [address], 12/18/2023 04:36:17 12/17/19 24 12/18/2023 COMP. METAB OLIC PANEL (14) bilirubin, total 0.6 mg/dL 0.0-1. 2 Not Available [facility] ([facility]) [address] [place], [address], 12/18/2023 04:36:17 12/17/19 24 12/18/2023 COMP. METAB OLIC PANEL (14) alkaline phosphatase 100 IU/L 44-121 Not Available [facility] ([facility]) [address] [place], [address], 12/18/2023 04:36:17 12/17/19 24 12/18/2023 COMP. METAB OLIC PANEL (14) AST (SGOT) 19 IU/L 0-40 Not Available [facility] ([facility]) [address] [place], [address], 12/18/2023 04:36:17 12/17/19 24 12/18/2023 COMP. METAB OLIC PANEL (14) ALT (SGPT) 26 IU/L 0-32 Not Available [facility] ([facility]) [address] [place], [address], 12/18/2023 04:36:17 12/17/19 24 12/18/2023 VITAM IN B12 AND FOLAT E vitamin B12 391 pg/mL 232-12 45 Not Available [facility] ([facility]) [address] [place], [address], 12/18/2023 04:36:18 12/17/19 24 12/18/2023 VITAM IN B12 AND FOLAT E folate (folic acid), serum 15.4 NG/mL >3.0 A serum folat e sarah ntrat ion of less than 3.1 ng/mL is consi dered to repre sent clini dao defic iency . Not Available [facility] ([facility]) [address] [place], [address], 12/18/2023 04:36:18 12/17/19 24 12/18/2023 HEMOG LOBIN A1C hemoglobin A1C 6.3 % 4.8-5. 6 above high normal Predi abete s: 5.7 - 6.4 Diabe sunita: >6.4 Glyce xenia contr ol for adult s with diabe sunita: <7.0 Not Available [facility] ([facility]) [address] [place], [address], 12/18/2023 04:36:19 12/17/19 24 12/17/2023 CBC WITH DIFFE RENTI AL/PL ATELE T WBC 5.6 x10e3 /uL 3.4-10 .8 Not Available [facility] ([facility]) [address] [place], [address], 12/18/2023 04:36:20 12/17/19 24 12/17/2023 CBC WITH DIFFE RENTI AL/PL ATELE T RBC 4.29 x10e6 /uL 3.77-5 .28 Not Available [facility] ([facility]) [address] [facility] [place], [address], 12/18/2023 04:36:20 12/17/19 24 12/17/2023 CBC WITH DIFFE RENTI AL/PL ATELE T hemoglobin 13.0 g/dL 11.1-1 5.9 Not Available [facility] ([facility]) [address] [place], [address], 12/18/2023 04:36:20 12/17/19 24 12/17/2023 CBC WITH DIFFE RENTI AL/PL ATELE T hematocrit 39.5 % 34.0-4 6.6 Not Available [facility] ([facility]) [address] [place], [address], 12/18/2023 04:36:20 12/17/19 24 12/17/2023 CBC WITH DIFFE RENTI AL/PL ATELE T MCV 92 fL 79-97 Not Available [facility] ([facility]) [address] [place], [address], 12/18/2023 04:36:20 12/17/19 24 12/17/2023 CBC WITH DIFFE RENTI AL/PL ATELE T MCH 30.3 pg 26.6-3 3.0 Not Available [facility] ([facility]) [address] [facility], [place], [address], 12/18/2023 04:36:20 12/17/19 24 12/17/2023 CBC WITH DIFFE RENTI AL/PL ATELE T MCHC 32.9 g/dL 31.5-3 5.7 Not Available [facility] ([facility]) [address] [facility], [place], [address], 12/18/2023 04:36:20 12/17/19 24 12/17/2023 CBC WITH DIFFE RENTI AL/PL ATELE T RDW 13.3 % 11.7-1 5.4 Not Available [facility] ([facility]) [address] [facility], [place], [address], 12/18/2023 04:36:20 12/17/19 24 12/17/2023 CBC WITH DIFFE RENTI AL/PL ATELE T platelets 204 x10e3 /uL 150-45 0 Not Available [facility] ([facility]) [address] [facility], [place], [address], 12/18/2023 04:36:20 12/17/19 24 12/17/2023 CBC WITH DIFFE RENTI AL/PL ATELE T neutrophils 61 % notest ab. Not Available [facility] ([facility]) [address] [facility], [place], [address], 12/18/2023 04:36:20 12/17/19 24 12/17/2023 CBC WITH DIFFE RENTI AL/PL ATELE T lymphs 25 % notest ab. Not Available [facility] ([facility]) [address] [facility], [place], [address], 12/18/2023 04:36:20 12/17/19 24 12/17/2023 CBC WITH DIFFE RENTI AL/PL ATELE T monocytes 11 % notest ab. Not Available [facility] ([facility]) [address] [facility] [place], [address], 12/18/2023 04:36:20 12/17/19 24 12/17/2023 CBC WITH DIFFE RENTI AL/PL ATELE T eos 2 % notest ab. Not Available [facility] ([facility]) [address] [facility], [place], [address], 12/18/2023 04:36:20 12/17/19 24 12/17/2023 CBC WITH DIFFE RENTI AL/PL ATELE T basos 1 % notest ab. Not Available [facility] ([facility]) [address] [facility], [place], [address], 12/18/2023 04:36:20 12/17/19 24 12/17/2023 CBC WITH DIFFE RENTI AL/PL ATELE T neutrophils (absolute) 3.4 x10e3 /uL 1.4-7. 0 Not Available [facility] ([facility]) [address] [facility], [place], [address], 12/18/2023 04:36:20 12/17/19 24 12/17/2023 CBC WITH DIFFE RENTI AL/PL ATELE T lymphs (absolute) 1.4 x10e3 /uL 0.7-3. 1 Not Available [facility] ([facility]) [address] [facility], [place], [address], 12/18/2023 04:36:20 12/17/19 24 12/17/2023 CBC WITH DIFFE RENTI AL/PL ATELE T monocytes(ab solute) 0.6 x10e3 /uL 0.1-0. 9 Not Available [facility] ([facility]) [address] [facility], [place], [address], 12/18/2023 04:36:20 12/17/19 24 12/17/2023 CBC WITH DIFFE RENTI AL/PL ATELE T eos (absolute) 0.1 x10e3 /uL 0.0-0. 4 Not Available [facility] ([facility]) [address] [facility], [place], [address], 12/18/2023 04:36:20 12/17/19 24 12/17/2023 CBC WITH DIFFE RENTI AL/PL ATELE T baso (absolute) 0.1 x10e3 /uL 0.0-0. 2 Not Available [facility] ([facility]) [address] [facility], [place], [address], 12/18/2023 04:36:20 12/17/19 24 12/17/2023 CBC WITH DIFFE RENTI AL/PL ATELE T immature granulocytes 0 % notest ab. Not Available [facility] ([facility]) [address] [facility], [place], [address], 12/18/2023 04:36:20 12/17/19 24 12/17/2023 CBC WITH DIFFE RENTI AL/PL ATELE T immature grans (abs) 0.0 x10e3 /uL 0.0-0. 1 Not Available [facility] ([facility]) [address] [facility], [place], [address], 12/18/2023 04:36:20 02/12/20 24 02/12/2024 Compr ehens lizbeth metab olic 1999 panel - Serum or Plasm a sodium [moles/volum e] in serum or plasma 137 mmol/ L low: 136mmo l/Lhig h: 145mmo l/L SODIU M 137 136 - 145 mmol/ L 02/11 2:[address] [facility] Not Available Not Available 12/09/2024 18:02:02 02/12/20 24 02/12/2024 Compr ehens lizbeth metab olic 1999 panel - Serum or Plasm a potassium [moles/volum e] in serum or plasma 4 mmol/ L low: 3.5mmo l/Lhig h: 5mmol/ L POTAS SIUM 4.0 3.5 - 5.0 mmol/ L 02/11 2:[address] [facility] Not Available Not Available 12/09/2024 18:02:02 02/12/20 24 02/12/2024 Compr ehens lizbeth metab olic 1999 panel - Serum or Plasm a chloride 101 mmol/ L low: 98mmol /Lhigh : 107mmo l/L CHLOR ELLIOT 101 98 - 107 mmol/ L 02/11 2:02 PM [facility] Not Available Not Available 12/09/2024 18:02:02 02/12/20 24 02/12/2024 Compr ehens lizbeth metab olic 1999 panel - Serum or Plasm a carbon dioxide, total [moles/volum e] in serum or plasma 25 mmol/ L low: 22mmol /Lhigh : 29mmol /L CO2 25 22 - 29 mmol/ L 02/11 2:02 PM [facility] Not Available Not Available 12/09/2024 18:02:02 02/12/20 24 02/12/2024 Compr ehens lizbeth metab olic 1999 panel - Serum or Plasm a calcium 9.5 mg/dL low: 8.6mg/ dLhigh : 10.2mg /dL CALCI UM 9.5 8.6 - 10.2 mg/dL 02/11 2:02 PM [facility] Not Available Not Available 12/09/2024 18:02:02 02/12/20 24 02/12/2024 Compr ehens lizbeth metab olic 1999 panel - Serum or Plasm a BUN 19 mg/dL low: 6mg/dL high: 20mg/d L BUN 19 6 - 20 mg/dL 02/11 2:02 PM [facility] Not Available Not Available 12/09/2024 18:02:02 02/12/20 24 02/12/2024 Compr ehens lizbeth metab olic 1999 panel - Serum or Plasm a creatinine [mass/volume ] in serum or plasma 0.85 mg/dL low: 0.51mg /dLhig h: 0.95mg /dL CREAT ININE 0.85 0.51 - 0.95 mg/dL 02/11 2:[address] [facility] Not Available Not Available 12/09/2024 18:02:02 02/12/20 24 02/12/2024 Compr ehens lizbeth metab olic 1999 panel - Serum or Plasm a glucose [mass/volume ] in serum or plasma 98 mg/dL low: 74mg/d Lhigh: 99mg/d L GLUCO SE 98 74 - 99 mg/dL 02/11 2:[address] [facility] Not Available Not Available 12/09/2024 18:02:02 02/12/20 24 02/12/2024 Compr ehens lizbeth metab olic 1999 panel - Serum or Plasm a total protein 6.9 g/dL low: 6.7g/d Lhigh: 8.6g/d L TOTAL PROTE IN 6.9 6.7 - 8.6 g/dL 02/11 2:[address] [facility] Not Available Not Available 12/09/2024 18:02:02 02/12/20 24 02/12/2024 Compr ehens lizbeth metab olic 1999 panel - Serum or Plasm a albumin 4.1 g/dL low: 3.5g/d Lhigh: 5.2g/d L ALBUM IN 4.1 3.5 - 5.2 g/dL 02/11 2:[address] [facility] Not Available Not Available 12/09/2024 18:02:02 02/12/20 24 02/12/2024 Compr ehens lizbeth metab olic 1999 panel - Serum or Plasm a bilirubin total 0.4 mg/dL low: 0.3mg/ dLhigh : 1.2mg/ dL BILIR UBIN TOTAL 0.4 0.3 - 1.2 mg/dL 02/11 2:[address] [facility] Not Available Not Available 12/09/2024 18:02:02 02/12/20 24 02/12/2024 Compr ehens lizbeth metab olic 2000 panel - Serum or Plasm a alkaline phosphatase 90 U/L low: 35U/Lh igh: 104U/L ALKAL INE PHOSP HATAS E 90 35 - 104 U/L 02/11 2:[address] [facility] Not Available Not Available 12/09/2024 18:02:02 02/12/20 24 02/12/2024 Compr ehens lizbeth metab olic 1999 panel - Serum or Plasm a AST 22 U/L high: 33U/L AST 22 <33 U/L 02/11 2:02 PM [facility] Not Available Not Available 12/09/2024 18:02:02 02/12/20 24 02/12/2024 Compr ehens lizbeth metab olic 1999 panel - Serum or Plasm a alanine aminotransfe rase [enzymatic activity/vol ume] in blood 24 U/L high: 34U/L ALT 24 <34 U/L 02/11 2:02 PM [facility] Not Available Not Available 12/09/2024 18:02:02 02/12/20 24 02/12/2024 Compr ehens lizbeth metab olic 1999 panel - Serum or Plasm a glomerular filtration rate [volume rate/area] in serum, plasma or blood by creatinine-b ased formula (CKD-epi 2020)/1.73 sq M text: >=60 mL/min /1.73 sq meter GFR >60 >=60 mL/mi n/1.7 3 sq meter 02/11 2:02 PM [facility] Not Available Not Available 12/09/2024 18:02:02 02/12/20 24 02/12/2024 Compr ehens lizbeth metab olic 1999 panel - Serum or Plasm a anion gap 11 mmol/ L low: 8mmol/ Lhigh: 16mmol /L ANION GAP 11 8 - 16 mmol/ L 02/11 2:02 PM [facility] Not Available Not Available 12/09/2024 18:02:02 02/12/20 24 02/12/2024 Compr ehens lizbeth metab olic 2000 panel - Serum or Plasm a Unknown Analyte Sample s contai mag indocy anine green cause interf erence s on Total and/or Direct Biliru bin and must not be measur ed. Sampl es conta ining indoc jerilyn e green cause inter feren mattie on Total and/o r Direc t Bilir ubin and must not be measu red. Not Available Not Available 12/09/2024 18:02:02 02/12/20 24 02/12/2024 Compr ehens lizbeth metab olic 2000 panel - Serum or Plasm a interpretati on and review of laboratory results Normal Not Available Not Available 11/25 18:02:02 02/12/2002/12/2024 CBC W Auto Diffe renti al panel - Blood leukocytes [#/volume] in blood 5.6 K/uL low: 4K/uLh igh: 9.8K/u L WBC 5.6 4.0 - 9.8 K/uL 02/11 1:23 [facility] Not Available 12/09/2024 18:02:02 02/12/20 24 02/12/2024 CBC W Auto Diffe renti al panel - Blood RBC 4.21 text: 3.90 - 4.90 M/uL RBC 4.21 3.90 - 4.90 M/uL 02/11 1:23 [facility] Not [facility] Not Available 12/09/2024 18:02:02 02/12/20 24 02/12/2024 CBC W Auto Diffe renti al panel - Blood hemoglobin 13 g/dL low: 11.8g/ dLhigh : 14.8g/ dL HEMOG LOBIN 13.0 11.8 - 14.8 g/dL 02/11 1:23 [facility] Not Available 12/09/2024 18:02:02 02/12/20 24 02/12/2024 CBC W Auto Diffe renti al panel - Blood hematocrit [volume fraction] of blood by automated count 38.8 % low: 35.5%h igh: 44% HEMAT OCRIT 38.8 35.5 - 44.0 % 02/11 1:[address] [facility] Not Available Not Available 12/09/2024 18:02:02 02/12/20 24 02/12/2024 CBC W Auto Diffe renti al panel - Blood MCV 92.2 fL low: 82fLhi gh: 99fL MCV 92.2 82.0 - 99.0 fL 02/11 1:[address] [facility] Not Available Not Available 12/09/2024 18:02:02 02/12/20 24 02/12/2024 CBC W Auto Diffe renti al panel - Blood MCH 30.9 pg low: 27.2pg high: 32.6pg MCH 30.9 27.2 - 32.6 pg 02/11 1:[address] [facility] Not Available Not Available 12/09/2024 18:02:02 02/12/20 24 02/12/2024 CBC W Auto Diffe renti al panel - Blood MCHC 33.5 g/dL low: 31.5g/ dLhigh : 35.5g/ dL MCHC 33.5 31.5 - 35.5 g/dL 02/11 1:[address] [facility] Not Available Not Available 12/09/2024 18:02:02 02/12/20 24 02/12/2024 CBC W Auto Diffe renti al panel - Blood RDW 14.3 % low: 11.5%h igh: 14.5% RDW 14.3 11.5 - 14.5 % 02/11 1:[address] [facility] Not Available Not Available 12/09/2024 18:02:02 02/12/20 24 02/12/2024 CBC W Auto Diffe renti al panel - Blood RDW-stdev 48 fL low: 37.1fL high: 48.7fL RDW-S TDEV 48.0 37.1 - 48.7 fL 02/11 1:[address] [facility] Not Available Not Available 12/09/2024 18:02:02 02/12/20 24 02/12/2024 CBC W Auto Diffe renti al panel - Blood platelets [#/volume] in blood by automated count 175 K/uL low: 140K/u Lhigh: 350K/u L PLATE LETS 175 140 - 350 K/uL 02/11 1:[address] [facility] Not Available Not Available 12/09/2024 18:02:02 02/12/20 24 02/12/2024 CBC W Auto Diffe renti al panel - Blood MPV 10.8 fL low: 9.3fLh igh: 12.4fL MPV 10.8 9.3 - 12.4 fL 02/11 1:[address] [facility] Not Available Not Available 12/09/2024 18:02:02 02/12/20 24 02/12/2024 CBC W Auto Diffe renti al panel - Blood neutrophils 52 % NEUTR OPHIL S 52 % 02/11 1:[address] [facility] Not Available Not Available 12/09/2024 18:02:02 02/12/20 24 02/12/2024 CBC W Auto Diffe renti al panel - Blood lymphocytes/ leukocytes in blood by automated count 34 % LYMPH OCYTE S 34 % 02/11 1:[address] [facility] Not Available Not Available 12/09/2024 18:02:02 02/12/20 24 02/12/2024 CBC W Auto Diffe renti al panel - Blood monocytes 11 % MONOC YTES 11 % 02/11 1:[address] [facility] Not Available Not Available 12/09/2024 18:02:02 02/12/20 24 02/12/2024 CBC W Auto Diffe renti al panel - Blood eosinophils 2 % EOSIN OPHIL S 2 % 02/11 1:[address] [facility] Not Available Not Available 12/09/2024 18:02:02 02/12/20 24 02/12/2024 CBC W Auto Diffe renti al panel - Blood basophils 1 % BASOP HILS 1 % 02/11 1:[address] [facility] Not Available Not Available 12/09/2024 18:02:02 02/12/20 24 02/12/2024 CBC W Auto Diffe renti al panel - Blood immature granulocytes 0 % IMMAT URE GRANU LOCYT ES 0 % 02/11 1:[address] [facility] Not Available Not Available 12/09/2024 18:02:02 02/12/20 24 02/12/2024 CBC W Auto Diffe renti al panel - Blood neutrophils [#/volume] in blood by automated count 2.91 K/uL low: 1.9K/u Lhigh: 7K/uL NEUTR OPHIL ABSOL MENOMINEE 2.91 1.90 - 7.00 K/uL 02/11 1:[address] [facility] Not Available Not Available 12/09/2024 18:02:02 02/12/20 24 02/12/2024 CBC W Auto Diffe renti al panel - Blood lymphocyte absolute 1.88 K/uL low: 0.7K/u Lhigh: 4.5K/u L LYMPH OCYTE ABSOL MENOMINEE 1.88 0.70 - 4.50 K/uL 02/11 1:[address] [facility] Not Available Not Available 12/09/2024 18:02:02 02/12/20 24 02/12/2024 CBC W Auto Diffe renti al panel - Blood monocyte absolute 0.62 K/uL low: 0.1K/u Lhigh: 1.3K/u L MONOC YTE ABSOL MENOMINEE 0.62 0.10 - 1.30 K/uL 02/11 1:[address] [facility] Not Available Not Available 12/09/2024 18:02:02 02/12/20 24 02/12/2024 CBC W Auto Diffe renti al panel - Blood eosinophil absolute 0.11 K/uL low: 0K/uLh igh: 0.7K/u L EOSIN OPHIL ABSOL MENOMINEE 0.11 0.00 - 0.70 K/uL 02/11 1:[address] [facility] Not Available Not Available 12/09/2024 18:02:02 02/12/20 24 02/12/2024 CBC W Auto Diffe renti al panel - Blood basophils absolute 0.03 K/uL low: 0K/uLh igh: 0.2K/u L BASOP HILS ABSOL MENOMINEE 0.03 0.00 - 0.20 K/uL 02/11 1:[address] [facility] Not Available Not Available 12/09/2024 18:02:02 02/12/20 24 02/12/2024 CBC W Auto Diffe renti al panel - Blood immature granulocytes absolute 0.01 K/uL low: 0K/uLh igh: 0.03K/ uL IMMAT URE GRANU LOCYT ES ABSOL MENOMINEE 0.01 0.00 - 0.03 K/uL 02/11 1:[address] [facility] Not Available Not Available 12/09/2024 18:02:02 02/13/20 24 02/13/2024 Urina lysis compl ete panel - Urine color UA Pale Yellow text: pale to dark yellow COLOR UA Pale Yello w Pale to Dark Yello w 02/12 3:[address] [facility] Not Available Not Available 12/09/2024 18:02:03 02/13/20 24 02/13/2024 Urina lysis compl ete panel - Urine clarity UA Clear text: clear JOANNA TY UA Clear Clear 02/12 3:21 AM [facility] Not Available Not Available 12/09/2024 18:02:03 02/13/20 24 02/13/2024 Urina lysis compl ete panel - Urine specific gravity UA 1.009 low: 1.003h igh: 1.035 SPECI FIC GRAVI TY UA 1.009 1.003 - 1.035 02/12 3:[address] [facility] Not Available Not Available 12/09/2024 18:02:03 02/13/20 24 02/13/2024 Urina lysis compl ete panel - Urine pH UA 5 low: 5high: 8 PH UA 5.0 5.0 - 8.0 02/12 3:[address] [facility] Not Available Not Available 12/09/2024 18:02:03 02/13/20 24 02/13/2024 Urina lysis compl ete panel - Urine leukocyte esterase UA Trace text: negati ve abnormal LEUKO CYTE BREN ASE UA Trace (A) Negat lizbeth 02/12 3:[address] [facility] Not Available Not Available 12/09/2024 18:02:03 02/13/20 24 02/13/2024 Urina lysis compl ete panel - Urine nitrite UA Negati ve text: negati ve NITRI TE UA Negat lizbeth Negat lizbeth 02/12 3:21 AM [facility] Not Available Not Available 12/09/2024 18:02:03 02/13/20 24 02/13/2024 Urina lysis compl ete panel - Urine protein [presence] in urine Negati ve text: negati ve PROTE IN UA Negat lizbeth Negat lizbeth 02/12 3:21 AM [facility] Not Available Not Available 12/09/2024 18:02:03 02/13/20 24 02/13/2024 Urina lysis compl ete panel - Urine glucose UA Negati ve text: negati ve GLUCO SE UA Negat lizbeth Negat lizbeth 02/12 3:21 AM [facility] Not Available Not Available 12/09/2024 18:02:03 02/13/20 24 02/13/2024 Urina lysis compl ete panel - Urine ketones UA Negati ve text: negati ve KETON ES UA Negat lizbeth Negat lizbeth 02/12 3:21 AM [facility] Not Available Not Available 12/09/2024 18:02:03 02/13/20 24 02/13/2024 Urina lysis compl ete panel - Urine urobilinogen UA Normal high: 2mg/dL UROBI LINOG EN UA Anu l <2.0 mg/dL 02/12 3:[address] [facility] Not Available Not Available 12/09/2024 18:02:03 02/13/20 24 02/13/2024 Urina lysis compl ete panel - Urine bilirubin UA Negati ve text: negati ve BILIR UBIN UA Negat lizbeth Negat lizbeth 02/12 3:21 AM [facility] Not Available Not Available 12/09/2024 18:02:03 02/13/20 24 02/13/2024 Urina lysis compl ete panel - Urine blood UA Negati ve text: negati ve BLOOD UA Negat lizbeth Negat lizbeth 02/12 3:21 AM [facility] Not Available Not Available 12/09/2024 18:02:03 02/13/20 24 02/13/2024 Urina lysis compl ete panel - Urine WBC UA 3-5 text: 0 - 2 /hpf abnormal WBC UA 3-5 (A) 0 - 2 /hpf 02/12 3:21 AM [facility] Not Available Not Available 12/09/2024 18:02:03 02/13/20 24 02/13/2024 Urina lysis compl ete panel - Urine RBC UA 0-2 text: 0 - 2 /hpf RBC UA 0-2 0 - 2 /hpf 02/12 3:21 AM [facility] Not Available Not Available 12/09/2024 18:02:03 02/13/20 24 02/13/2024 Urina lysis compl ete panel - Urine bacteria UA 1+ text: negati ve /hpf abnormal BACTE SANGITA UA 1+ (A) Negat lizbeth /hpf 02/12 3:21 AM [facility] Not Available Not Available 12/09/2024 18:02:03 02/13/20 24 02/13/2024 Urina lysis compl ete panel - Urine epithelial cells, urine 0-5 text: 0 - 5 /hpf EPITH ELIAL CELLS , URINE 0-5 0 - 5 /hpf 02/12 3:21 AM [facility] Not Available Not Available 12/09/2024 18:02:03 02/13/20 24 02/13/2024 Urina lysis compl ete panel - Urine interpretati on and review of laboratory results Abnorm al Not Available Not Available 18:02:03 02/13/20 24 02/13/2024 Basic metab olic 1999 panel - Serum or Plasm a sodium [moles/volum e] in serum or plasma 136 mmol/ L low: 136mmo l/Lhig h: 145mmo l/L SODIU M 136 136 - 145 mmol/ L 02/12 1:28 AM [facility] Not Available Not Available 12/09/2024 18:02:03 02/13/20 24 02/13/2024 Basic metab olic 1999 panel - Serum or Plasm a potassium [moles/volum e] in serum or plasma 4.5 mmol/ L low: 3.5mmo l/Lhig h: 5mmol/ L POTAS SIUM 4.5 3.5 - 5.0 mmol/ L 02/12 1:28 AM [facility] Not Available Not Available 12/09/2024 18:02:03 02/13/20 24 02/13/2024 Basic metab olic 1999 panel - Serum or Plasm a chloride 103 mmol/ L low: 98mmol /Lhigh : 107mmo l/L CHLOR ELLIOT 103 98 - 107 mmol/ L 02/12 1:28 AM [facility] Not Available Not Available 12/09/2024 18:02:03 02/13/20 24 02/13/2024 Basic metab olic 1999 panel - Serum or Plasm a carbon dioxide, total [moles/volum e] in serum or plasma 22 mmol/ L low: 22mmol /Lhigh : 29mmol /L CO2 22 22 - 29 mmol/ L 02/12 1:28 AM [facility] Not Available Not Available 12/09/2024 18:02:03 02/13/20 24 02/13/2024 Basic metab olic 1999 panel - Serum or Plasm a calcium 9.8 mg/dL low: 8.6mg/ dLhigh : 10.2mg /dL CALCI UM 9.8 8.6 - 10.2 mg/dL 02/12 1:28 AM [facility] Not Available Not Available 12/09/2024 18:02:03 02/13/20 24 02/13/2024 Basic metab olic 1999 panel - Serum or Plasm a BUN 19 mg/dL low: 6mg/dL high: 20mg/d L BUN 19 6 - 20 mg/dL 02/12 1:28 AM [facility] Not Available Not Available 12/09/2024 18:02:03 02/13/20 24 02/13/2024 Basic metab olic 1999 panel - Serum or Plasm a creatinine [mass/volume ] in serum or plasma 0.68 mg/dL low: 0.51mg /dLhig h: 0.95mg /dL CREAT ININE 0.68 0.51 - 0.95 mg/dL 02/12 1:28 AM [facility] Not Available Not Available 12/09/2024 18:02:03 02/13/20 24 02/13/2024 Basic metab olic 1999 panel - Serum or Plasm a glucose [mass/volume ] in serum or plasma 134 mg/dL low: 74mg/d Lhigh: 99mg/d L high GLUCO SE 134 (H) 74 - 99 mg/dL 02/12 1:28 AM [facility] Not Available Not Available 12/09/2024 18:02:03 02/13/20 24 02/13/2024 Basic metab olic 2000 panel - Serum or Plasm a glomerular filtration rate [volume rate/area] in serum, plasma or blood by creatinine-b ased formula (CKD-epi 2020)/1.73 sq M text: >=60 mL/min /1.73 sq meter GFR >60 >=60 mL/mi n/1.7 3 sq meter 02/12 1:28 AM [facility] [employer] [facility] Not Available Not Available 12/09/2024 18:02:03 02/13/20 24 02/13/2024 Basic metab olic 2000 panel - Serum or Plasm a anion gap 11 mmol/ L low: 8mmol/ Lhigh: 16mmol /L ANION GAP 11 8 - 16 mmol/ L 02/12 1:28 AM [facility] [employer] [facility] Not Available Not Available 12/09/2024 18:02:03 02/13/20 24 02/13/2024 Basic metab olic 2000 panel - Serum or Plasm a interpretati on and review of laboratory results Abnorm al Not Available Not Available 18:02:03 02/13/2002/13/2024 CBC W Auto Diffe renti al panel - Blood leukocytes [#/volume] in blood 7.5 K/uL low: 4K/uLh igh: 9.8K/u L WBC 7.5 4.0 - 9.8 K/uL 02/12 1:48 AM [facility] Not Available Not Available 12/09/2024 18:02:02 02/13/20 24 02/13/2024 CBC W Auto Diffe renti al panel - Blood RBC 4.3 text: 3.90 - 4.90 M/uL RBC 4.30 3.90 - 4.90 M/uL 02/12 1:48 AM [facility] [employer] [facility] Not Available Not Available 12/09/2024 18:02:02 02/13/20 24 02/13/2024 CBC W Auto Diffe renti al panel - Blood hemoglobin 13.4 g/dL low: 11.8g/ dLhigh : 14.8g/ dL HEMOG LOBIN 13.4 11.8 - 14.8 g/dL 02/12 1:[address] [facility] Not Available Not Available 12/09/2024 18:02:02 02/13/20 24 02/13/2024 CBC W Auto Diffe renti al panel - Blood hematocrit [volume fraction] of blood by automated count 40.9 % low: 35.5%h igh: 44% HEMAT OCRIT 40.9 35.5 - 44.0 % 02/12 1:[address] [facility] Not Available Not Available 12/09/2024 18:02:02 02/13/20 24 02/13/2024 CBC W Auto Diffe renti al panel - Blood MCV 95.1 fL low: 82fLhi gh: 99fL MCV 95.1 82.0 - 99.0 fL 02/12 1:[address] [facility] Not Available Not Available 12/09/2024 18:02:02 02/13/20 24 02/13/2024 CBC W Auto Diffe renti al panel - Blood MCH 31.2 pg low: 27.2pg high: 32.6pg MCH 31.2 27.2 - 32.6 pg 02/12 1:[address] [facility] Not Available Not Available 12/09/2024 18:02:02 02/13/20 24 02/13/2024 CBC W Auto Diffe renti al panel - Blood MCHC 32.8 g/dL low: 31.5g/ dLhigh : 35.5g/ dL MCHC 32.8 31.5 - 35.5 g/dL 02/12 1:[address] [facility] Not Available Not Available 12/09/2024 18:02:02 02/13/20 24 02/13/2024 CBC W Auto Diffe renti al panel - Blood RDW 14.1 % low: 11.5%h igh: 14.5% RDW 14.1 11.5 - 14.5 % 02/12 1:[address] [facility] Not Available Not Available 12/09/2024 18:02:02 02/13/20 24 02/13/2024 CBC W Auto Diffe renti al panel - Blood RDW-stdev 48.9 fL low: 37.1fL high: 48.7fL high RDW-S TDEV 48.9 (H) 37.1 - 48.7 fL 02/12 1:[address] [facility] Not Available Not Available 12/09/2024 18:02:02 02/13/20 24 02/13/2024 CBC W Auto Diffe renti al panel - Blood platelets [#/volume] in blood by automated count 163 K/uL low: 140K/u Lhigh: 350K/u L PLATE LETS 163 140 - 350 K/uL 02/12 1:[address] [facility] Not Available Not Available 12/09/2024 18:02:02 02/13/20 24 02/13/2024 CBC W Auto Diffe renti al panel - Blood MPV 11.4 fL low: 9.3fLh igh: 12.4fL MPV 11.4 9.3 - 12.4 fL 02/12 1:[address] [facility] Not Available Not Available 12/09/2024 18:02:02 02/13/20 24 02/13/2024 CBC W Auto Diffe renti al panel - Blood neutrophils 83 % NEUTR OPHIL S 83 % 02/12 1:[address] [facility] Not Available Not Available 12/09/2024 18:02:02 02/13/20 24 02/13/2024 CBC W Auto Diffe renti al panel - Blood lymphocytes/ leukocytes in blood by automated count 13 % LYMPH OCYTE S 13 % 02/12 1:[address] [facility] Not Available Not Available 12/09/2024 18:02:02 02/13/20 24 02/13/2024 CBC W Auto Diffe renti al panel - Blood monocytes 3 % MONOC YTES 3 % 02/12 1:[address] [facility] Not Available Not Available 12/09/2024 18:02:02 02/13/20 24 02/13/2024 CBC W Auto Diffe renti al panel - Blood eosinophils 0 % EOSIN OPHIL S 0 % 02/12 1:[address] [facility] Not Available Not Available 12/09/2024 18:02:02 02/13/20 24 02/13/2024 CBC W Auto Diffe renti al panel - Blood basophils 0 % BASOP HILS 0 % 02/12 1:[address] [facility] Not Available Not Available 12/09/2024 18:02:02 02/13/20 24 02/13/2024 CBC W Auto Diffe renti al panel - Blood immature granulocytes 0 % IMMAT URE GRANU LOCYT ES 0 % 02/12 1:[address] [facility] Not Available Not Available 12/09/2024 18:02:02 02/13/20 24 02/13/2024 CBC W Auto Diffe renti al panel - Blood neutrophils [#/volume] in blood by automated count 6.2 K/uL low: 1.9K/u Lhigh: 7K/uL NEUTR OPHIL ABSOL MENOMINEE 6.20 1.90 - 7.00 K/uL 02/12 1:[address] [facility] Not Available Not Available 12/09/2024 18:02:02 02/13/20 24 02/13/2024 CBC W Auto Diffe renti al panel - Blood lymphocyte absolute 1.01 K/uL low: 0.7K/u Lhigh: 4.5K/u L LYMPH OCYTE ABSOL MENOMINEE 1.01 0.70 - 4.50 K/uL 02/12 1:[address] [facility] Not Available Not Available 12/09/2024 18:02:02 02/13/20 24 02/13/2024 CBC W Auto Diffe renti al panel - Blood monocyte absolute 0.24 K/uL low: 0.1K/u Lhigh: 1.3K/u L MONOC YTE ABSOL MENOMINEE 0.24 0.10 - 1.30 K/uL 02/12 1:[address] [facility] Not Available Not Available 12/09/2024 18:02:02 02/13/20 24 02/13/2024 CBC W Auto Diffe renti al panel - Blood eosinophil absolute 0.02 K/uL low: 0K/uLh igh: 0.7K/u L EOSIN OPHIL ABSOL MENOMINEE 0.02 0.00 - 0.70 K/uL 02/12 1:[address] [facility] Not Available Not Available 12/09/2024 18:02:02 02/13/20 24 02/13/2024 CBC W Auto Diffe renti al panel - Blood basophils absolute 0.02 K/uL low: 0K/uLh igh: 0.2K/u L BASOP HILS ABSOL MENOMINEE 0.02 0.00 - 0.20 K/uL 02/12 1:[address] [facility] Not Available Not Available 12/09/2024 18:02:02 02/13/20 24 02/13/2024 CBC W Auto Diffe renti al panel - Blood immature granulocytes absolute 0.02 K/uL low: 0K/uLh igh: 0.03K/ uL IMMAT URE GRANU LOCYT ES ABSOL MENOMINEE 0.02 0.00 - 0.03 K/uL 02/12 1:48 AM [facility] Not [facility] Not Available 12/09/2024 18:02:02 02/13/20 24 02/13/2024 CBC W Auto Diffe renti al panel - Blood interpretati on and review of laboratory results Abnorm al Not Available Not Available 18:02:02 02/14/20 24 02/14/2024 Basic metab olic 2000 panel - Serum or Plasm a sodium [moles/volum e] in serum or plasma 137 mmol/ L low: 136mmo l/Lhig h: 145mmo l/L KAMERON Ochoa 137 136 - 145 mmol/ L 02/13 1:[address] [facility] Not Available Not Available 12/09/2024 18:02:03 02/14/20 24 02/14/2024 Basic metab olic 1999 panel - Serum or Plasm a potassium [moles/volum e] in serum or plasma 3.6 mmol/ L low: 3.5mmo l/Lhig h: 5mmol/ L POTAS SIUM 3.6 3.5 - 5.0 mmol/ L 02/13 1:26 AM [facility] Not Available Not Available 12/09/2024 18:02:03 02/14/20 24 02/14/2024 Basic metab olic 1999 panel - Serum or Plasm a chloride 102 mmol/ L low: 98mmol /Lhigh : 107mmo l/L CHLOR ELLIOT 102 98 - 107 mmol/ L 02/13 1:[address] [facility] Not Available Not Available 12/09/2024 18:02:03 02/14/20 24 02/14/2024 Basic metab olic 1999 panel - Serum or Plasm a carbon dioxide, total [moles/volum e] in serum or plasma 24 mmol/ L low: 22mmol /Lhigh : 29mmol /L CO2 24 22 - 29 mmol/ L 02/13 1:26 AM [facility] Not Available Not Available 12/09/2024 18:02:03 02/14/20 24 02/14/2024 Basic metab olic 1999 panel - Serum or Plasm a calcium 9 mg/dL low: 8.6mg/ dLhigh : 10.2mg /dL CALCI UM 9.0 8.6 - 10.2 mg/dL 02/13 1:26 AM [facility] Not Available Not Available 12/09/2024 18:02:03 02/14/20 02/14/2024 Basic metab olic 1999 panel - Serum or Plasm a BUN 18 mg/dL low: 6mg/dL high: 20mg/d L BUN 18 6 - 20 mg/dL 02/13 1:26 AM [facility] Not Available Not Available 12/09/2024 18:02:03 02/14/20 24 02/14/2024 Basic metab olic 1999 panel - Serum or Plasm a creatinine [mass/volume ] in serum or plasma 0.66 mg/dL low: 0.51mg /dLhig h: 0.95mg /dL CREAT ININE 0.66 0.51 - 0.95 mg/dL 02/13 1:26 AM [facility] Not Available Not Available 12/09/2024 18:02:03 02/14/20 24 02/14/2024 Basic metab olic 1999 panel - Serum or Plasm a glucose [mass/volume ] in serum or plasma 113 mg/dL low: 74mg/d Lhigh: 99mg/d L high GLUCO SE 113 (H) 74 - 99 mg/dL 02/13 1:26 AM [facility] Not Available Not Available 12/09/2024 18:02:03 02/14/20 24 02/14/2024 Basic metab olic 1999 panel - Serum or Plasm a glomerular filtration rate [volume rate/area] in serum, plasma or blood by creatinine-b ased formula (CKD-epi 2020)/1.73 sq M text: >=60 mL/min /1.73 sq meter GFR >60 >=60 mL/mi n/1.7 3 sq meter 02/13 1:26 AM [facility] Not Available Not Available 12/09/2024 18:02:03 02/14/20 24 02/14/2024 Basic metab olic 2000 panel - Serum or Plasm a anion gap 11 mmol/ L low: 8mmol/ Lhigh: 16mmol /L ANION GAP 11 8 - 16 mmol/ L 02/13 1:26 AM [facility] Not Available Not Available 12/09/2024 18:02:03 02/14/20 24 02/14/2024 Basic metab olic 2000 panel - Serum or Plasm a interpretati on and review of laboratory results Abnorm al Not Available Not Available 18:02:03 02/14/20 24 02/14/2024 CBC panel - Blood by Autom ated count leukocytes [#/volume] in blood 5.9 K/uL low: 4K/uLh igh: 9.8K/u L WBC 5.9 4.0 - 9.8 K/uL 02/13 1:[address] [facility] Not Available Not Available 12/09/2024 18:02:03 02/14/20 24 02/14/2024 CBC panel - Blood by Autom ated count RBC 3.94 text: 3.90 - 4.90 M/uL RBC 3.94 3.90 - 4.90 M/uL 02/13 1:[address] [facility] Not Available Not Available 12/09/2024 18:02:03 02/14/20 24 02/14/2024 CBC panel - Blood by Autom ated count hemoglobin 12.1 g/dL low: 11.8g/ dLhigh : 14.8g/ dL HEMOG LOBIN 12.1 11.8 - 14.8 g/dL 02/13 1:[address] [facility] Not Available Not Available 12/09/2024 18:02:03 02/14/20 24 02/14/2024 CBC panel - Blood by Autom ated count hematocrit [volume fraction] of blood by automated count 37.9 % low: 35.5%h igh: 44% HEMAT OCRIT 37.9 35.5 - 44.0 % 02/13 1:13 AM [employer] [facility] Not Available Not Available 12/09/2024 18:02:03 02/14/20 24 02/14/2024 CBC panel - Blood by Autom ated count MCV 96.2 fL low: 82fLhi gh: 99fL MCV 96.2 82.0 - 99.0 fL 02/13 1:[address] [facility] Not Available Not Available 12/09/2024 18:02:03 02/14/20 24 02/14/2024 CBC panel - Blood by Autom ated count MCH 30.7 pg low: 27.2pg high: 32.6pg MCH 30.7 27.2 - 32.6 pg 02/13 1:[address] [facility] Not Available Not Available 12/09/2024 18:02:03 02/14/20 24 02/14/2024 CBC panel - Blood by Autom ated count MCHC 31.9 g/dL low: 31.5g/ dLhigh : 35.5g/ dL MCHC 31.9 31.5 - 35.5 g/dL 02/13 1:[address] [facility] Not Available Not Available 12/09/2024 18:02:03 02/14/20 24 02/14/2024 CBC panel - Blood by Autom ated count platelets [#/volume] in blood by automated count 158 K/uL low: 140K/u Lhigh: 350K/u L PLATE LETS 158 140 - 350 K/uL 02/13 1:[address] [facility] Not Available Not Available 12/09/2024 18:02:03 02/14/20 24 02/14/2024 CBC panel - Blood by Autom ated count MPV 11.2 fL low: 9.3fLh igh: 12.4fL MPV 11.2 9.3 - 12.4 fL 02/13 [facility] Not Available 12/09/2024 18:02:03 02/14/20 24 02/14/2024 CBC panel - Blood by Autom ated count RDW 14 % low: 11.5%h igh: 14.5% RDW 14.0 11.5 - 14.5 % 02/13 1:13 AM [facility] Not Available Not Available 12/09/2024 18:02:03 02/14/20 24 02/14/2024 CBC panel - Blood by Autom ated count RDW-stdev 49.2 fL low: 37.1fL high: 48.7fL high RDW-S TDEV 49.2 (H) 37.1 - 48.7 fL 02/13 1:[address] [facility] Not Available Not Available 12/09/2024 18:02:03 02/14/20 24 02/14/2024 CBC panel - Blood by Autom ated count interpretati on and review of laboratory results Abnorm al Not Available Not Available 18:02:03 04/15/20 24 04/16/2024 TSH+C ORT+A LDOS+ METAN E+MONI IN TSH 1.290 uIU/m L 0.450- 4.500 Not Available [facility] ([facility]) [address] [place], [address], 04/26/2024 16:36:34 04/15/20 24 04/16/2024 TSH+C ORT+A LDOS+ METAN E+MONI IN cortisol 14.7 ug/dL 6.2-19 .4 Pleas e Note: The refer ence inter evin and johnny ing for this test is for an AM colle ction . If this is a PM colle ction pleas e use: Corti [place] PM: 2.3-1 1.9 Not Available [facility] ([facility]) [address] [place], [address], 04/26/2024 16:36:34 04/15/20 24 04/20/2024 TSH+C ORT+A LDOS+ METAN E+MONI IN aldosterone 5.6 NG/dL 0.0-30 .0 Not Available [facility] ([facility]) [address] [place], [address], 04/26/2024 16:36:34 04/15/20 24 04/20/2024 TSH+C ORT+A LDOS+ METAN E+MONI IN normetanephr ine, pl 81.0 pg/mL 0.0-21 8.9 Not Available [facility] ([facility]) [address] [place], [address], 04/26/2024 16:36:34 04/15/20 24 04/20/2024 TSH+C ORT+A LDOS+ METAN E+MONI IN metanephrine , pl <25.0 pg/mL 0.0-88 .0 Not Available [facility] ([facility]) [address] [place], [address], 04/26/2024 16:36:34 04/15/20 24 04/21/2024 TSH+C ORT+A LDOS+ METAN E+MONI IN renin activity, plasma 1.001 NG/mL /HR 0.167- 5.380 Not Available [facility] ([facility]) [address] [place], [address], 04/26/2024 16:36:34 04/15/20 24 04/26/2024 CATEC HOLAM MELANIA, PLASM A norepinephri ne, pl 486 pg/mL 0-874 Not Available [facility] ([facility]) [address] [place], [address], 04/26/2024 16:36:35 04/15/20 24 04/26/2024 CATEC HOLAM MELANIA, PLASM A epinephrine, pl <15 pg/mL 0-62 Not Available [facility] ([facility]) [address] [place], [address], 04/26/2024 16:36:35 04/15/20 24 04/26/2024 CATEC HOLAM MELANIA, PLASM A dopamine, pl <30 Not Available [facility] ([facility]) [address] [place], [address], 04/26/2024 16:36:35 04/19/20 24 05/20/2024 CATEC H. FRACT +META NE, FRACT , U norepinephri ne, urine, 24 HR COMMEN T ug/24 _HR Not appli cable Not Available [employer] [facility] [address] [place], [address], 05/20/2024 09:14:56 04/19/2005/20/2024 CATEC H. FRACT +META NE, FRACT , U norepinephri ne, urine 6.6 ug/dL This test was devel oped and its perfo rmanc e saranya cteri stics deter mined by [facility]. It has not been clear ed or appro fozia by the Food and Drug Admin istra tion. Not Available [employer] [facility] [address] [place], [address], 05/20/2024 09:14:56 04/19/2005/20/2024 CATEC H. FRACT +META NE, FRACT , U norepinephri ne/event designer ratio 62 ug/g Refer ence Range : < 112 Not Available [employer] [address] [place], [address], 05/20/2024 09:14:56 04/19/2005/20/2024 CATEC H. FRACT +META NE, FRACT , U epinephrine, urine 24 HR COMMEN T ug/24 _HR Not appli cable Not Available [facility] [address] [place], [address], 05/20/2024 09:14:56 04/19/2005/20/2024 CATEC H. FRACT +META NE, FRACT , U epinephrine, urine 0.5 ug/dL This test was devel oped and its perfo rmanc e saranya cteri stics deter mined by [facility]. It has not been clear ed or appro fozia by the Food and Drug Admin istra tion. Not Available [facility] [address] [place], [address], 05/20/2024 09:14:56 04/19/20 24 05/20/2024 CATEC H. FRACT +META NE, FRACT , U epinephrine/ creatinine ratio 4.7 ug/g Refer ence Range : < 20 Not Available [facility] [address] [place], [address], 05/20/2024 09:14:56 04/19/20 24 05/20/2024 CATEC H. FRACT +META NE, FRACT , U normetanephr ine, urine COMMEN T ug/24 _HR Not appli cable This test was devel oped and its perfo rmanc e saranya cteri stics deter mined by [facility]. It has not been clear ed or appro fozia by the Food and Drug Admin istra tion. Not Available [facility] [address] [place], [address], 05/20/2024 09:14:56 04/19/20 24 05/20/2024 CATEC H. FRACT +META NE, FRACT , U normetanephr ine/creat. ratio 151 ug/g Refer ence Range : Adult s: 109 - 596 Not Available [facility] [address] [place], [address], 05/20/2024 09:14:56 04/19/20 24 05/20/2024 CATEC H. FRACT +META NE, FRACT , U metanephrine , urine COMMEN T ug/24 _HR Not appli cable This test was devel oped and its perfo rmanc e saranya cteri stics deter mined by [facility]. It has not been clear ed or appro fozia by the Food and Drug Admin istra tion. Not Available [facility] [address] [place], [address], 05/20/2024 09:14:56 04/19/20 24 05/20/2024 CATEC H. FRACT +META NE, FRACT , U metanephrine /creatinine ratio 42 ug/g Refer ence Range : Adult s: 22 - 205 Not Available [facility] [address] [facility], [place], [address], 05/20/2024 09:14:56 04/19/20 24 05/20/2024 CATEC H. FRACT +META NE, FRACT , U 24 HR creatinine, urine COMMEN T mg/24 _HR Not appli cable Not Available [facility] [address] [facility], [place], [address], 05/20/2024 09:14:56 04/19/20 24 05/20/2024 CATEC H. FRACT +META NE, FRACT , U creatinine, urine 106 mg/dL Not Available [facility] [address] [place], [address], 05/20/2024 09:14:56 12/24/19 24 12/24/2023 US, duple x, renal arter y No observ ation record ed. [address], [place], [address], 12/25/2023 15:45:04 03/16/20 24 03/11/2024 US, [facility] ardio gram No observ ation record ed. [address] [facility] [address], [place], [address], 03/16/2024 13:23:51 03/16/20 24 03/11/2024 US, duple x, renal arter y No observ ation record ed. [facility] [address], [place], [address], 03/16/2024 13:22:40 04/12/20 24 04/12/2024 home sleep study No observ ation record ed. [address] [facility] [facility] [address], [place], [address], 04/12/2024 15:09:03 Result Notes None recorded. Problems Name Problem SNOMED Code Status Onset Date Resolution Date Notes Provider Name and Address Organization Details Recorded Time Body mass index 30+ - obesity 020713069 Active 2023 ALON Nicholas Attn: Aparna g,[address] [place], [address], [place] [facility] 4 09:02:06 Obesity 042493304 Active 2023 ALON Nicholas Attn: Aparna g,[address] [place], [address], [place] [facility] 4 09:02:07 Long-term drug therapy Active 2023 ALON Nicholas Attn: Accountin g,[address] [place], [address], [place] [facility] 4 09:02:18 Mixed anxiety and depressive disorder 832740712 Active 2023 ALON Nicholas Attn: Accountin g,[address] [place], [address], [place] [facility] 4 09:02:49 Hypothyroidism 58368240 Active 2023 ALON Nicholas Attn: Aparna g,[address] [place], [address], [place] [facility] 4 09:03:01 Prediabetes 345624341 Active 2023 ALON Nicholas Attn: Accountin g,[address] [place], [address], [place] [facility] 4 09:03:02 Benign essential hypertension 3122384 Active 2023 ALON Nicholas Attn: Accountin g,[address] [place], [address], [place] [facility] 4 09:03:16 Obstructive sleep apnea syndrome 50378616 Active 2023 ALON Nicholas Attn: Aparna g,[address] [place], [address], [place] [facility] 16:42:14 Problem Notes None recorded. Medical Equipment None Reported. Allergies No known drug allergies Medications Name Sig Start Date Stop Date Status Note LastModified by Organization Details LastModified Time sleepio mis 12/07 completed Not Available Not Available Not Available nifedipine ER 30 mg tablet,exte nded release 24 hr TAKE 1 TABLET ONCE DAILY. active Not Available Not Available No t Available metformin 500 mg tablet Take 1 tablet twice a day by oral route. 02/17 completed Not Available Not Available Not Available clonidine HCl 0.1 mg tablet TAKE 1 TABLET BY MOUTH TWICE DAILY 02/09 completed Not Available Not Available Not Available ibuprofen 800 mg tablet TAKE 1 TABLET BY MOUTH EVERY 8 HOURS NEEDED FOR PAIN 12/07 completed Not Available Not Available Not Available fluconazole 150 mg tablet TAKE 1 TABLET BY MOUTH 1 TIME 12/07 completed Not Available Not Available Not Available famotidine 40 mg tablet TAKE 1 TABLET DAILY WITH A MEAL active Not Available Not Available No t Available Synthroid 100 mcg tablet TAKE 1 TABLET DAILY active Not Available Not Available No t Available metoprolol succinate ER 100 mg tablet,exte nded release 24 hr TAKE 2 TABLETS DAILY active Not Available Not Available No t Available venlafaxine ER 150 mg capsule,ext ended release 24 hr TAKE 1 CAPSULE DAILY active Not Available Not Available No t Available sulfamethox azole 800 mg-trimetho prim 160 mg tablet TAKE 1 TABLET BY MOUTH TWICE DAILY 12/07 completed Not Available Not Available Not Available tramadol 50 mg tablet TAKE 1 TABLET BY MOUTH EVERY 6 HOURS NEEDED FOR PAIN 12/07 completed Not Available Not Available Not Available meloxicam 7.5 mg tablet Take 1 tablet every day by oral route. 12/07 completed Not Available Not Available Not Available oxycodone-a cetaminophe n 5 mg-325 mg tablet TAKE 1 TABLET BY MOUTH EVERY 6 HOURS NEEDED FOR PAIN 12/07 completed Not Available Not Available Not Available clonidine HCl 0.2 mg tablet TAKE 1 TABLET TWICE A DAY, DISCONTIN UE 0.1MG CLONIDINE DOSING active Not Available Not Available No t Available valsartan 320 mg tablet TAKE 1 TABLET BY MOUTH DAILY 02/17 completed 1/2 bid Not Available Not Available Not Available cephalexin 500 mg tablet TAKE 1 TABLET BY MOUTH EVERY 6 HOURS 12/07 completed Not Available Not Available Not Available hydrochloro thiazide 25 mg tablet TAKE 1 TABLET DAILY active Not Available Not Available No t Available norethindro ne acetate 5 mg tablet TAKE 1 TABLET DAILY active Not Available Not Available No t Available ondansetron 4 mg disintegrat ing tablet DISSOLVE 1 TABLET ON THE TONGUE EVERY 6 HOURS NEEDED FOR NAUSEA 12/07 completed Not Available Not Available Not Available metformin ER 500 mg tablet,exte nded release 24 hr TAKE 2 TABLETS DAILY active Not Available Not Available No t Available levothyroxi ne 112 mcg tablet Take 1 tablet every day by oral route. active Not Available Not Available No t Available amoxicillin 500 mg-potassiu m clavulanate 125 mg tablet TAKE 1 TABLET BY MOUTH THREE TIMES DAILY FOR 10 DAYS 12/07 completed Not Available Not Available Not Available valsartan 160 mg tablet TAKE 1 TABLET EVERY 12 HOURS. DISCONTIN UE 320MG DOSE, MUST BE DOSES 160MG EVERY 12 HOURS active Not Available Not Available No t Available venlafaxine ER 150 mg tablet,exte nded release 24 hr 02/04 completed Not Available Not Available Not Available Trulicity 1.5 mg/0.5 mL subcutaneou s pen injector ADMINISTE R 1.5 MG UNDER THE SKIN EVERY WEEK DIRECTED active Not Available Not Available No t Available Vitals Date Recorded Systolic And Diastolic Provider Name and Address Organization Details Last Updated DateTime 12/08/2023 180/100 mm[Hg] ALON Nicholas Attn: Accounting,[address] [place], [address], [place] [facility] 12/08/2023 17:01:07 Date Recorded Body weight Body mass index (BMI) Body height Oxygen saturation Oxygen saturation in Arterial blood by Pulse oximetry Heart rate Systolic And Diastolic Provider Name and Address Organization Details Last Updated DateTime 4 370468. 79 g 35.8 kg/m2 167.64 cm 97 % 97 % 73 /min 156/100 mm[Hg] Ayanna Pressley MA [facility] 16:38:21 Date Recorded Respiratory rate Systolic And Diastolic Systolic And Diastolic Provider Name and Address Organization Details Last Updated DateTime 12/10/2024 16 /min 160/100 mm[Hg] 160/100 mm[Hg] ALON Nicholas Attn: Accounting, [address] [place], [address], [facility] 12/10/2024 16:57:00 Date Recorded Body height Body mass index (BMI) Body weight Oxygen saturation Oxygen saturation in Arterial blood by Pulse oximetry Heart rate Systolic And Diastolic Provider Name and Address Organization Details Last Updated DateTime 5 167.64 cm 37.3 kg/m2 639930. 84 g 99 % 99 % 82 /min 148/82 mm[Hg] Alexandra Lo MA [place] [facility] 5 16:28:24 Date Recorded Systolic And Diastolic Systolic And Diastolic Provider Name and Address Organization Details Last Updated DateTime 12/25/2023 150/94 mm[Hg] 150/98 mm[Hg] ALON Nicholas Attn: Accounting, [place], [address], [facility] 12/25/2023 15:41:11 Date Recorded Body height Body mass index (BMI) Body weight Respiratory rate Oxygen saturation Oxygen saturation in Arterial blood by Pulse oximetry Heart rate Systolic And Diastolic Provider Name and Address Organization Details Last Updated DateTime 4 167.64 cm 36.2 kg/m2 795205. 66 g 20 /min 97 % 97 % 70 /min 144/98 mm[Hg] Alexandra Lo [place] [facility] 15:16:04 Date Recorded Systolic And Diastolic Provider Name and Address Organization Details Last Updated DateTime 02/18/2024 138/84 mm[Hg] ALON Nicholas Attn: Accounting,[address] [place], [address], [facility] 02/18/2024 16:05:54 Date Recorded Body height Respiratory rate Body mass index (BMI) Body weight Oxygen saturation Oxygen saturation in Arterial blood by Pulse oximetry Heart rate Systolic And Diastolic Provider Name and Address Organization Details Last Updated DateTime 4 167.64 cm 20 /min 36.2 kg/m2 296159. 98 g 97 % 97 % 72 /min 152/98 mm[Hg] Alexandra Lo MA [facility] 15:33:19 Date Recorded Systolic And Diastolic Provider Name and Address Organization Details Last Updated DateTime 06/09/2024 150/90 mm[Hg] ALON Nicholas Attn: Accounting,[address] [facility], [place], [address], [facility] 06/09/2024 16:41:54 Date Recorded Body height Body mass index (BMI) Body weight Oxygen saturation Oxygen saturation in Arterial blood by Pulse oximetry Heart rate Respiratory rate Systolic And Diastolic Provider Name and Address Organization Details Last Updated DateTime 167.64 cm 36.3 kg/m2 085336. 28 g 100 % 100 % 99 /min 20 /min 140/82 mm[Hg] Alexandra Lo MA [facility] 16:23:46 Social History Question Answer Notes LastModified by Organizat ion Details LastModified Time Tobacco Smoking Status Never Smoker Ayanna Pressley MA null, [facility] 12/08/2023 16:35:21 Do You Have An Advance Directive? No Information n ot available 02/18/2024 Are You Blind Or Do You Have Difficulty Seeing? No Information n ot available 12/08/2023 What Is Your Level Of Caffeine Consumption? Occasional Information not available 02/18/2024 In The 14 Days Before Symptom Onset, Have You Had Close Contact With A Laboratory-confirm ed COVID-19 While That Case Was Ill? No Information n ot available 12/24/2023 In The 14 Days Before Symptom Onset, Have You Had Close Contact With A Person Who Is Under Investigation For COVID-19 While That Person Was Ill? No Information not available 12/24/2023 Have You Been To An Area Known To Be High Risk For COVID-19? No Information not available 12/24/2023 Are You Deaf Or Do You Have Serious Difficulty Hearing? Yes Information not available 12/08/2023 What Type Of Diet Are You Following? REGULAR Information n ot available 02/18/2024 Are There Any Guns Present In Your Home? No Information not available 02/18/2024 What Was The Date Of Your Most Recent Tobacco Screening? 12/10/2024 Information not available 12/10/2024 What Is Your Relationship Status? Information not available 12/08/2023 Do You Use Your Seat Belt Or Car Seat Routinely? Yes Information not available 12/08/2023 Do You Have Smoke And Carbon Monoxide Detectors In Your Home? Yes Information not available 12/24/2023 Do You Use Sunscreen Routinely? No Information not available 02/18/2024 Has Tobacco Cessation Counseling Been Provided? Yes Information not available 12/24/2023 On What Date Was Tobacco Cessation Counseling Provided? 12/10/2024 Information not available 12/10/2024 Sex: Female Functional Status Question Answer Note LastModified by Organizat ion Details LastModified Time Do you use any illicit or recreational drugs? No Information not available 02/18/2024 Do you or have you ever used any other forms of tobacco or nicotine? No Information not available 06/09/2024 What is your level of alcohol consumption? Occasional Information not available 12/08/2023 Are you able to care for yourself? Yes Information n ot available 12/08/2023 What is your exercise level? None Information not available 02/18/2024 Mental Status Question Answer Note LastModified by Organization D etails LastModified Time Do you feel stressed (tense, restless, nervous, or anxious, or unable to sleep at night)? [id number] Information not available 12/08/2023 Family History Relationship Description Onset Age of this Age Resolved Age Notes LastModified by Organization Details LastModified Time Mother Harmful pattern of use of alcohol [email or web address] Not available 2023 16:39:33 Mother Disorder of thyroid gland [email or web address] Not available 2023 16:39:38 Medical History Condition Response Anxiety Disorder Y Acid Reflux (GERD) Y High Blood Pressure Y Thyroid Problems Y Gynecological History Statement/Question Response Menses Monthly N Current Control Method Other Obstetrics History GPAL:G 0 P 0 0 0 0 Immunizations Vaccine Type Date Status Note Provider Nam e and Address Organization Details Recorded Time COVID-19 vaccine, vector-nr, rS-Ad26, PF, 0.5 mL 10/03/2020 completed Alexandra Lo MA [facility] 06/09/2024 16:17:49 Past Encounters Encounter ID Performer Location Encounter Start Date Encounter Closed Date Diagnosis/Indication Diagnosis SNOMED-CT Code Diagnosis ICD10 Code Diagnosis Note [id number] Jorge Rico MD [facility] [place] [address] [place] [address] 12/08/2023 16:26:06 12/08/2023 18:34:15 Prediabetes 371255312 R73.03 on metformin and trulicity therapy. due for a1c updated lab Hypothyroidism 91691704 E03.9 on thyroid supplement . 100mcg daily levothyrox ine. due for labs Cholesterol screening 27 9471154 Z13.220 fasting lipid due Benign ess ential hypertension 1355914 I10 BP is 180/100 today. Add clonidine 0.1mg bid to extensive regimen of HCTZ 25mg daily, metoprolol ER 100mg two daily, valsartan 320mg daily. Check us renal duplex. Mixed anxi ety and depressive disorder 128766130 F41.8 stable on venlafaxin e ER 150mg daily. Long-term drug therapy 990797225 Z79.899 routine labs are due. f/u in 2 weeks. Body mass index 30+ - obesity 640849341 Z68.35 bmi 35.8 Obesity 403530381 E66.9 discussed healthy diet, exercise, controllin g carbohydra sunita and added sugars in the diet [id number] Jorge Rico MD [facility] [employer] [address] [place] [address] 12/25/2023 15:07:03 12/25/2023 16:37:54 Benign essential hypertension 7098934 I10 continue clonidine 0.1mg bid to extensive regimen of HCTZ 25mg daily, metoprolol ER 100mg two daily, valsartan 320mg daily. Renal artery duplex did not reveal and noted JORDAN. She has been missing her evening clonidine dose much of the time. She must dose that early evening. she will make sure that happens. Pt is to track her home BP's twice daily and report back via the portal in 1 week about blood pressures. Long-term drug therapy 229454211 Z79.899 labs were reviewed. Prediabetes 394650795 R7 3.03 on metformin and trulicity therapy. 6.3% a1c on recent labs. [id number] Jorge Rico MD [facility] [employer] [address] [place] [address] 02/18/2024 15:14:43 02/18/2024 16:38:45 Benign essential hypertension 7881894 I10 Patient's blood pressure is 138/84 today which is stable and improved compared to prior. [facility] 0.2 mg clonidine twice daily, hydrochlor othiazide 25 mg daily, metformin ER 200 mg daily and her valsartan is now dosed 160 mg twice daily. She will continue with Cardiology follow-up in the next days and we will await any new orders on their behalf Long-term drug therapy 149154675 Z79.118 [id number] Jorge Rico MD [facility] [employer] [address] [place] [address] 06/09/2024 16:05:15 06/10/2024 10:16:22 Benign essential hypertension 8382056 I10 Blood pressure still elevated in the 140-150 range today. She is on multiple agents including clonidine 0.2 mg twice daily, hydrochlor othiazide 25 mg daily, metoprolol ER 200 mg daily, nifedipine ER 30 mg daily and valsartan 160 mg twice daily.. She is following with Cardiology now for management of this. I have encouraged the patient to further decrease her sodium intake as well as keeping no alcohol on board. Exercise will also help. She also can take an additional clonidine when needed. Prediabetes 581642964 R7 3.03 on metformin and trulicity therapy. Due for an updated A1c Hypothyroidism 95193298 E03.9 on thyroid supplement . 100mcg daily levothyrox ine. due for labs Mixed anxi ety and depressive disorder 849545887 F41.8 stable on venlafaxin e ER 150mg daily. Long-term drug therapy 125611793 Z79.899 CBC and CMP due Body mass index 30+ - obesity 601471266 Z68.35 bmi 35.8 Obesity 218098227 E66.9 discussed healthy diet, exercise, controllin g carbohydra sunita and added sugars in the diet Obstructiv e sleep apnea syndrome 62148380 G47.33 pt will call with [employer] needed. results from cardiology reviewed. [id number] Jorge Rico MD [facility] [employer] [address] [place] [address] 12/10/2024 16:15:24 12/14/2024 11:37:10 Body mass index 30+ - obesity 894433989 Z68.35 bmi 37.3 Obese class II 426640817 1 43961 E66.812 discussed healthy diet, exercise, controllin g carbohydra sunita and added sugars in the diet Benign ess ential hypertension 4362042 I10 Blood pressure still elevated in the 140-150 range today. She is on multiple agents including clonidine 0.2 mg twice daily, hydrochlor othiazide 25 mg daily, metoprolol ER 200 mg daily, nifedipine ER 30 mg daily and valsartan 160 mg twice daily.. She is following with Cardiology now for management of this. I have encouraged the patient to further decrease her sodium intake as well as keeping no alcohol on board. Exercise will also help. She also can take an additional clonidine when needed. Prediabetes 366467523 R7 3.03 on metformin and trulicity therapy. Due for an updated A1c Hypothyroidism 27750672 E03.9 on thyroid supplement . 100mcg daily levothyrox ine. due for labs Mixed anxi ety and depressive disorder 710075196 F41.8 stable on venlafaxin e ER 150mg daily. Obstructiv e sleep apnea syndrome 46888014 G47.33 pt will call with [employer] needed. results from cardiology reviewed. 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 Lower urin syed tract symptoms 369426255 R39.9 Positive s creening for depression on PHQ-9 (Patient Health Questionnaire 9) 3289895200 18798 Z13.31 Health Concerns Section Related Observation LastModified by Organization Detai ls LastModified Time None Recorded Concern Status LastModified by Organization Details LastModified Time None Recorded Advance Directives Directive N: Payers Encounter Date Sequence Insurance Name Policy Number Policy Gallardo Covered Member ID Gallardo Member ID Guarantor Name 12/08/2023 1 [employer] [id number] Nicole Echeverria [id number] Nicole Echeverria 12/25/2023 1 [employer] [id number] Nicole Echeverria [id number] Nicole Echeverria 02/18/2024 1 [employer] [id number] Nicole Echeverria [id number] Nicole Echeverria 06/09/2024 1 [employer] [id number] Nicole Echeverria [id number] Nicole Echeverria Notes Date Note Type Note Provider Name and Address Organization Details Recorded Time 4 text/html HypertensionReported bypatient.Notes:pt is taking multiple agents and her BP is escalated today . She has not had excess caffeine or salt or decongestants. And she has lost weight.ThyroidReported bypatient.Notes:pt is taking thyroid supplement. Prediabetes hx. on metformin. stable. had lost weight from trulicity therapy. ALON Nicholas Attn: Accounting,[address] [place], [address], [facility] 12/25/2023 09:05:09 4 text/html HypertensionReported bypatient.Severity:severe Duration:has noted for years Onset/Timing:worse Associated Symptoms:no shortness of breath; no fatigue; no palpitations; no decline in exercise capacity; no snoringNotes:clonidine was added last appt. she is tolerating it well. BP has lowered some but not to goal. renal artery duplex is normal. ALON Nicholas Attn: Accounting,[address] [place], [address], [facility] 12/25/2023 21:29:57 4 text/html HypertensionReported bypatient.Severity:severe Duration:has noted for years Onset/Timing:worse Associated Symptoms:no shortness of breath; no fatigue; no palpitations; no decline in exercise capacity; no snoringNotes:clonidine was added last appt. she is tolerating it well. BP has lowered some but not to goal. renal artery duplex is normal and this was ordered again while she was in the hospital. She will also be seeing a care advocate in the next upcoming days for more evaluation in her refractory hypertension. pt. went on , States that she went in for High bp states that she was having hear palpation , blurred vison headaches etc. States that she feels ok now states that her bp is still high but it better from when she was seen at the hospital ALON Nicholas Attn: Accounting,[address], [place], [address], [facility] 02/26/2024 09:33:21 4 text/html HypertensionReported bypatient.Severity:severe Duration:has noted for years Onset/Timing:better Context:emotional stress; Drinking exacerbated Alleviating Factors:medication Associated Symptoms:no shortness of breath; no fatigue; no palpitations; no decline in exercise capacity; no snoringThyroidReported bypatient.Notes:pt is taking thyroid supplement. Prediabetes hx. on metformin. stable. had lost weight from trulicity therapy. ALON Nicholas Attn: Accounting,[address], [place], [address], [facility] 06/25/2024 16:58:46 OBGyn Episode No OBEpisode recorded.
--- OUTSIDE RECORDS SUMMARY | 2024-12-20 18:28 | XMS_ITS | Encounter Summary ---
Author Organization [facility] Address [address] [place] [address] Care Team Providers Care L D Rn Name Role Phone Unavailable Primary Care Provider Unavailabl e Encounter Details Date Type Department Care Team (Late st Contact Info) Description 11/23/2020 Lab Requisition [facility] [address] [place] [address] Saulo Connelly MD [address] [place] [address] Social History Tobacco Use Types [...] Priority Date/Time Associated Diagnosis Comments DERMATOPATHOLOGY Routine 11/22/2020 12:0 0 AM CDT documented in this encounter Results * DERMATOPATHOLOGY (11/22/2020 12:00 AM CDT) Case Report Dermatopathology Report Case: [id number] Authorizing Provider: Saulo Connelly MD Collected: 11/22/2020 12:00 AM Ordering Location: [facility] Lab Received: 11/23/2020 01:22 PM Pathologist: Gabriela Garcia MD Specimen: Skin, left parietal scalp 1 2:02 PM CDT DERMATOPATHOLOGY LABORATORY Final Diagnosis Specimen A. SKIN, left parietal scalp: TRICHILEMMAL (PILAR) CYST (L72.12) 1 2:02 PM CDT DERMATOPATHOLOGY LABORATORY at 1402 CDT Clinical History R/O pilar cyst. 1 2:02 PM CDT DERMATOPATHOLOGY LABORATORY Gross Description Specimen A: Received is one formalin filled container labeled with the patient's name and designated left parietal scalp. The specimen consists of a [id number] excision. The specimen is serially sectioned and a off premise service representative section is submitted in cassette 1. Jar 1. 1 2:02 PM CDT DERMATOPATHOLOGY LABORATORY Microscopic Description Specimen A. SKIN, left parietal scalp: Sections show a cyst that is lined by stratified squamous epithelium that shows trichilemmal keratinization (no granular layer). There is homogeneous pink keratin within the cyst. 1 2:02 PM CDT DERMATOPATHOLOGY LABORATORY Disclaimer An external and internal positive and negative controls are appropriate for the histochemical, immunohistochemical and immunofluorescence stain(s) in this case (if any), except where stated explicitly. The performance characteristics of the stain(s) cited in this report were developed and its performance characteristic determined by the Dermatopathology Laboratory at [facility], directed by Dr. Shayna Garcia. These tests need not be, and therefore are not, approved by the [place] Food and Drug Administration. The tests are used for clinical purposes. Billing Codes Specimen Charges Stain Charges 19240 1 1 2:02 PM CDT DERMATOPATHOLOGY LABORATORY Embedded Images 1 2:02 PM CDT DERMATOPATHOLOGY LABORATORY Pathology/Cytolog y TISSUE SPECIMEN FROM SKIN / Unknown 11/22/2020 11/23/2020 1:22 PM CDT us Saulo Connelly MD LAB - PATHOLOGY/CYTOLOGY ORD ERABLES Final Result DERMATOPATHOLOGY LABORATORY [facility] - Department of Dermatology [address] [place] [address], [facility] [phone] documented in this encounter Visit Diagnoses Not on filedocumented in this encounter
--- OUTSIDE RECORDS SUMMARY | 2024-12-20 18:28 | XMS_ITS | Clinical Summary ---
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 Active levothyroxine 100 mcg tablet Take 100 mcg by mouth daily in the morning. Active hydroCHLOROthia zide 25 mg tablet Take 25 mg by mouth daily. Active venlafaxine 150 mg Extended Release 24 hour tablet Take 150 mg by mouth daily with breakfast. Active famotidine (PEPCID) 40 mg tablet Take 40 mg by mouth daily. Active metoprolol succinate ER 100 mg capsule sprinkle, ext. release 24 hr (KAPSPARGO SPRINKLE) Take 200 mg by mouth daily. Active metFORMIN (GLUCOPHAGE XR) 500 mg Extended Release 24 hour tablet Take 1,000 mg by mouth daily with breakfast. Active dulaglutide (Trulicity) 1.5 mg/0.5 mL injection Inject 1.5 mg by subcutaneous injection every Friday. Active norethindrone acetate (AYGESTIN) 5 mg Tablet Take 5 mg by mouth daily. Active meloxicam (MOBIC) 7.5 mg tablet Take 1 Tablet (7.5 mg) by mouth daily. 30 Tablet 4 Active valsartan (DIOVAN) 160 mg tablet Starting 02/14 Take 1 Tablet (160 mg) by mouth 2 times daily. 60 Tablet 02/14/2024 12:11 PM CDT 4 Active Active Problems Problem Noted Date Diagnosed Date Hypertensive urgency 02/12/2024 Dizziness 02/12/2024 Blurry vision, bilateral 02/12/2024 Palpitations 02/12/2024 Hyperlipidemia 11/12/2021 Type II diabetes mellitus, well controlled 11/12 Benign essential hypertension 09/13/2021 Hypothyroidism 01/24/2014 Overview (02/12/2024): Hypothyroid Encounters Date Type Department Care Team Description 11/09/2024 External Device Data [facility] ABSTRACTION Provider, Abstract 10/26/2024 External Device Data [facility] ABSTRACTION Provider, Abstract 10/26/2024 External Device Data [facility]STRACTION Provider, Abstract 10/26/2024 External Device Data [facility]STRACTION Provider, Abstract 10/13/2024 External Device Data [facility] ABSTRACTION Provider, Abstract 10/13/2024 External Device Data [facility] ABSTRACTION Provider, Abstract 10/04/2024 External Device Data [facility] ABSTRACTION Provider, Abstract from Last 3 Months Social History Tobacco Use Types Packs/Day Years Used Date Smoking Tobacco: Never Tobacco Cessation:Counseling Given: Not Answered Feeling Safe Answer Date Recorded Are you in a relationship wi th someone who hurts you emotionally and/or physically? No 02/12/2024 Food Insecurity Answer Date Recorded Patient needs follow up regardin 11/18/2024 Transportation Needs Answer Date Record ed Patient needs follow up regardin 11/18/2024 Housing Stability Answer Date Recorded Social/Environmental Concerns No concerns Utility Needs Answer Date Recorded Patient needs follow up regardin 11/18/2024 Comments Unknown Sex and Gender Information Value Date Recorded Sex Assigned at Not on file Legal Sex Female 11:56 AM CDT Gender Identity Not on file Sexual Orientation Not on file Last Filed Vital Signs Vital Sign Reading Time Taken Comments Blood Pressure 173/105 02/14/2024 4:23 PM CDT Pulse 66 02/14/2024 3:00 PM CDT Temperature 36.7 C (98 F) 02/14/2024 3:00 PM CDT Respiratory Rate 17 02/14/2024 11:5 9 AM CDT Oxygen Saturation 100% 02/14/2024 11: 59 AM CDT Inhaled Oxygen Concentration - - Weight 102.2 kg (225 lb 3.2 oz) 024 10:04 PM CDT Height 172.7 cm (5' 8 ) 02/12/2024 9:58 PM CDT Body Mass Index 34.24 02/12/2024 9:58 PM CDT Plan of Treatment Health Maintenance Due Date Last Done Comments DIABETES ANNUAL FOOT EXAM 1993 DIABETES ANNUAL RETINAL EXAM 1993 DIABETES MICROALBUMIN ANNUAL SCREEN 1993 DTAP/TDAP/TD VACCINES (1 - Tdap) 1994 HEPATITIS B VACCINES (1 of 3 - 19+ 3-dose series) 1994 HPV/Cotest (21-29) 1996 CERVICAL CANCER SCREENING 2005 HPV/Cotest (30-65) 2005 PAP SMEAR 2005 COLORECTAL SCREENING 2020 Colorectal Cancer Screening 2020 FIT-DNA Q 3 years 2020 FIT/FOBT Q 1 year 2020 Flex Sig/CT Colonography Q 5 years 2020 INFLUENZA VACCINE (#1) 2024 DIABETES HBA1C Q 6 MONTHS 08/15/2024 02/13/2024 BREAST CANCER SCREENING 12/01/2024 12/02/19 24, 12/02/2023, 12/05/2022, Additional history exists LDL CHOLESTEROL ANNUAL 02/12/2025 02/13/2024 Procedures Procedure Name Priority Date/Time Associated Diagnosis Comments LIPID PANEL Routine 02/13/2024 12:45 AM CDT HEMOGLOBIN A1C Routine 02/13/2024 12:45 AM CDT from Last 3 Months or Most Recently Relevant to Health Maintenance Results * (ABNORMAL) HEMOGLOBIN A1C (02/13/2024 12:45 AM CDT) HEMOGLOBIN A1C 6.3(H) <5.7 % 02/13/2024 4:11 PM CDT [facility] EST. AVG GLUCOSE, A1C 134 mg/dL 02/13/2024 4:11 PM CDT [facility] Blood Venipuncture / Unknown 02/13/2024 12:45 AM CDT 02/13/2024 12:55 AM CDT Narrative [facility] - 02/13/2024 4:11 PM CDT HGB A1C INTERPRETATION NORMAL: <5.7% PRE-DIABETES: 5.7 - 6.4% DIABETES: 6.5% OR GREATER us Mukesh Whitlock MD CHEMISTRY ORDERABLES Final Result [facility]# [id number] [address] [place] [id number] * (ABNORMAL) LIPID PANEL (02/13/2024 12:45 AM CDT) [facility] CHOLESTEROL 185 <200 mg/dL 02/13/2024 2:06 PM CDT [facility] [employer] [facility] TRIGLYCERIDE 106 <150 mg/dL 02/13/2024 2:06 PM T [facility] [employer] [facility] HDL 42 40 - 59 mg/dL 02/13/2024 2:06 PM T [facility] [employer] [facility] LDL CALCULATED 122(H) <100 mg/dL 02/13/2024 2:06 PM T [facility] [employer] [facility] NON-HDL CHOLESTEROL 143(H) <130 mg/dL 02/13/2024 2:06 PM T [facility] [employer] [facility] Blood Venipuncture / Unknown 02/13/2024 12:45 AM CDT 02/13/2024 12:55 AM CDT Critical access hospital [facility] - 02/13/2024 2:06 PM CDT TOTAL CHOLESTEROL mg/dL Desirable <200 Borderline high 200-239 High >=240 TRIGLYCERIDES mg/dL Normal <150 Borderline high 150-199 High 200-499 Very high >=500 HDL CHOLESTEROL mg/dL Low <40 Normal 40-59 Desirable >=60 NON HDL CHOLESTEROL mg/dL Optimal <130 Near Optimal 130-159 Borderline High 160-189 Very High >=190 CALCULATED LDL mg/dL LDL <70, OPTIMAL if have Atherosclerotic cardiovascular disease (ASCVD) or intermediate or higher (>7.5%) 10 year risk of ASCVD including most adults with diabetes. LDL <100, Optimal in adult patients with low (<7.5%) 10 year ASCVD risk LDL 100-160, Suboptimal LDL >160, High LDL >190, Very high ATPIII Guidelines Reference Ranges for Lipid Panels (NCEP/AMA) . Mukesh Whitlock MD CHEMISTRY ORDERABLES Final Result [facility]# [id number] [address] [place] [address] from Last 3 Months or Most Recently Relevant to Health Maintenance Insurance [employer] CHOICE POS II RX [facility] [employer] Advance Directives For more information, please contact: [phone] * Full Code (Latest Code Status on File) Date Activated Date Inactivated Comments 02/12/2024 4:57 PM 02/14/2024 7:32 PM
--- OUTSIDE RECORDS SUMMARY | 2024-12-20 18:28 | XMS_ITS | Clinical Summary ---
Author Organization [facility] Address [address] 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 This disclosure is being madepursuant to the Care Everywhere program and may not contain all information available regarding this patient. Last updated 18.[facility] Social History Tobacco Use Types Packs/Day Years Used Date Smoking Tobacco: Never Assessed Comments Unknown Sex and Gender Information Value Date Recorded Sex Assigned at Not on file Legal Sex Female 1:31 PM CDT Gender Identity Not on file Sexual Orientation Not on file Plan of Treatment Health Maintenance Due Date Last Done Comments COLOGUARD (AGES 45-75) - COL ON CA SCREENING 1975 COLON MONITORING 1975 COLONOSCOPY - COLON CA SCREENING 1975 CT COLONOGRAPHY - COLON CA SCREENING 1975 Colorectal Cancer Screening 1975 FIT - COLON CA SCREENING 1975 FLEX SIG - COLON CA SCREENING 1975 LIPID TESTING 1975 MAMMOGRAM 1975 HIV SCREENING 1990 HEPATITIS C SCREENING 06/29/1993 DTAP/TDAP/TD VACCINES (1 - Tdap) 1994 HEPATITIS B VACCINE (1 of 3 - 19+ 3-dose series) 1994 COVID-19 VACCINE ( - 2023-2 5 season) 2024 DEPRESSION SCREENING 07/28/2024 INFLUENZA VACCINE (Season Ended) 2025 ZOSTER VACCINE (1 of 2) 2025 HIB VACCINE Aged Out No longer eligi ble based on patient's age to complete this topic HPV VACCINE Aged Out No longer eligi ble based on patient's age to complete this topic MENINGOCOCCAL (Group B) VACC INE SHARED DECISION-MAKING Aged Out No longer eligibl e based on patient's age to complete this topic MENINGOCOCCAL GROUPS A/C/Y/W VACCINE Aged Out No longer eligible b ased on patient's age to complete this topic Insurance [employer]
--- OUTSIDE RECORDS SUMMARY | 2024-12-20 18:28 | XMS_ITS | CONTINUITY OF CARE DOCUMENT ---
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 Name Role Phone Nafisa LINDSAY, Stewart Unavailable DESTINY COSTA Unavailable DESTINY COSTA Unavailable PROBLEMS Condition Status Date Provider Notes Cardiology examination active Stewart Skelton MD Hypertension active Stewart Skelton MD Orthostatic syncope active Stewart Skelton MD Overweight active Stewart Skelton MD Snoring active Rylie Sibley WATCH CRYSTAL GRINDER ENCOUNTERS Date Type Provider Location Encounter Diag nosis 7 - 8 In-person encounter Office Visit Stewart Skelton MD [facility] Snoring 0 - 1 In-person encounter Office Visit Stewart Skelton MD [facility] Cardiology examinationHypertensionOrthostatic syncopeOverweight VITAL SIGNS Date Observation Value Provider Body Mass Index (Ratio) 32.38 kg/m2 Leroy Skelton MD respiratory rate E&M 20 /min Chanda sr RN pulse rate 62 /min Rylie Sibley NP blood pressure, diastolic 70 mm[Hg] Ve meg Sibley WATCH CRYSTAL GRINDER blood pressure, systolic 100 mm[Hg] Irwin Sibley NP weight E&M 213 [lb_av] Chanda Whitaker RN Body Mass Index (Ratio) 33.60 kg/m2 Leroy Skelton MD blood pressure, cuff size large Ke rri Shaungumealanna blood pressure, diastolic 98 mm[Hg] Ke rri Hiral blood pressure, systolic 122 mm[Hg] Oly Blackman oxygen saturation, oximetry 99 % Sapna Blackman respiratory rate E&M 12 /min Sapna enriquez pulse rate 82 /min Sapna leoneer weight E&M 221 [lb_av] Sapna leoneer height E&M 68 [in_i] Sapna marroquin ALLERGIES No Known Drug Allergies HISTORY OF MEDICATION USE Medication Status Instructions Dates Provider Indications Com ments nifedipine 30 mg tablet extended release 24hr active Take 1 tablet by mouth once a day Sapna Blackman nifedipine 30 mg tablet extended release 24hr completed 1 tablet once a day 02/24 - Sapna Blackman clonidine HCl 0.2 mg tablet active 1 tablet by mouth twice a day Rylie Sibley NP famotidine 40 mg tablet active take 1 pill a day Sapna Blackman hydrochlorothiazide 25 mg tablet active TAKE 1 TABLET BY MOUTH EVERY DAY Sapna Blackman metformin (Glucophage XR) 500 mg tablet extended release 24 hr active take 2 pill in the am Sapna Blackman metoprolol succinate 100 mg tablet extended release 24 hr active 2 pills in the am Sapna Blackman norethindrone acetate 5 mg tablet active take 1 pill a day Sapna Blackman Synthroid 100 mcg tablet active TAKE 1 TABLET BY MOUTH EVERY DAY Sapna Blackman valsartan 160 mg tablet active take 1 pill twice a day Sapna Blackman venlafaxine 150 mg capsule,extended release 24hr active take 1 pill a day Sapna Blackman SOCIAL HISTORY Date Observation Value Provider smoking status Never smoker Rylie Ritchie i WATCH CRYSTAL GRINDER smoking status Never smoker Stewart Skelton MD INSURANCE PROVIDERS Payer name Policy type / Coverage type Celi red constitution party ID [employer] 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 D iscussed with patient need to keep monitoring BP at home and keep record. C an reduce Clonidine to 0.2 mg twice daily C all office in two weeks with home BP readings to enable medicatioon adjustments Irwinwili Maryjo GARCIA Cardiology:Recommend weight loss . Stewart Skelton MD Cardiology Stewart Skelton MD Cardiology:Will add low dose nifedipine and see if we can wean off clonidine. Stewart Skelton MD Date Name Sleep Study Renal Artery Duplex Complete Echo HISTORY OF PROCEDURES Procedure Date Procedure Name Provider Procedure Notes S tatus EKG Stewart Skelton MD complete d
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
[2024-12-20 18:40] VITALS: BP 138/91; PULSE 96; RESP 26; O2SAT 100
[2024-12-20] MEDS: levETIRAcetam 1000MG/NACL100ML 1,000 MG/100 ML BAG 400 MG IVPB (18:51)
[2024-12-20] MEDS: SODIUM CHLORIDE 0.9% IV 1,000 ML 999 ML IV CONT (18:52)
[2024-12-20 19:01] VITALS: BP 130/79; PULSE 90; RESP 22; O2SAT 99
[2024-12-20] MEDS: MORPHINE SULFATE (*CRX) 4 MG/ML INJ IV PUSH (19:22)
== END 2024-12-20 19:27 | disposition short-term general hospital (02) ==
PROVIDERS: Emergency Medicine; Emergency Provider Registered Nurse; PCP Physician Assistant
DX: S06.5XAA Traumatic subdural hemorrhage with loss of consciousness status unknown, initial encounter (principal); S06.0XAA Concussion with loss of consciousness status unknown, initial encounter; S13.4XXA Sprain of ligaments of cervical spine, initial encounter; S70.12XA Contusion of left thigh, initial encounter; S75.012A Minor laceration of femoral artery, left leg, initial encounter; I10 Essential (primary) hypertension; E03.9 Hypothyroidism, unspecified; K21.9 Gastro-esophageal reflux disease without esophagitis; G47.33 Obstructive sleep apnea (adult) (pediatric); F41.9 Anxiety disorder, unspecified; R91.1 Solitary pulmonary nodule; N28.1 Cyst of kidney, acquired; K59.00 Constipation, unspecified; Z79.899 Other long term (current) drug therapy; R94.31 Abnormal electrocardiogram [ECG] [EKG]; V47.5XXA Car driver injured in collision with fixed or stationary object in traffic accident, initial encounter
CPT/HCPCS: 36415; 70450; 70486; 71260; 72125; 73701; 74177; 80053; 85025; 85610; 85730; 86850; 86900; 86901; 93005; 96361; 96365; 96375; 99291; J1953; J2270; J7030; Q9967